=== PATIENT | female | born 1965 | race Caucasian/White ===

== ENCOUNTER → 2016-04-01 | Outpatient (CLI) | payer OTHER ==
[~2016-04-01] MED LIST: ASPCH81X PO; CALC600T9 PO; CHOL1000 PO; CLB/200 PO; DVN80 PO; LAMICTAL PO; LAMO150T32 PO; MIRT45TA PO; MULT-506 PO; NIAC750T2 PO; OMEG10007 PO; PSYL0.524 PO; THIO5CAP2 PO; VENL150C56 PO; ZNTT/150 PO
[2016-04-01 16:06] LABS: PROLACTIN 47.14 ng/mL
== END | disposition home or self-care (01) ==
LOC: C.LAB1850 14:46
PROVIDERS: ATTEND Obstetrics & Gynecology
DX: N91.2 Amenorrhea, unspecified (principal)

== ENCOUNTER → 2016-04-01 | Outpatient (CLI) | payer OTHER | END | disposition home or self-care (01) | LOC: C.PAPS 07:52 | PROVIDERS: ATTEND Obstetrics & Gynecology | DX: Z01.419 Encounter for gynecological examination (general) (routine) without abnormal findings (principal) ==

== ENCOUNTER → 2016-08-06 | Outpatient (CLI) | payer OTHER ==
[2016-08-06 12:16] LABS: BASO % 0.2 %; BASO ABS # 0.01 K/uL (0-0.2); COMPLETE YES; EOS % 1.5 %; HEMATOCRIT 43.3 % (37-47); IG% 0.2 %; LYMPH % 30.5 %; LYMPH ABS # 1.68 K/uL (1.2-3.4); MEAN CELL VOLUME 99.1 fL (80-100); MEAN CORPUSCULAR HEMOGLOBIN 33.9 pg (25-34); MEAN CORPUSCULAR HGB CONC 34.2 g/dl (32-36); MEAN PLATELET VOLUME 9.9 fL (7.4-10.4); MONO % 6.4 %; NEUT % 61.2 %; PLATELET COUNT 215 K/uL (130-400); RED BLOOD COUNT 4.37 M/uL (4.2-5.4); WHITE BLOOD COUNT 5.51 K/uL (4.8-10.8)
[2016-08-06 12:26] LABS: ESTIMATED AVERAGE GLUCOSE 108 mg/dl; HA1C FLAG Normal (Normal)
[2016-08-06 12:27] LABS: ALB/GLOB RATIO 1.2 (0.9-2); ALT/SGPT 33 U/L (12-78); AST/SGOT 12 U/L (15-37); BLOOD UREA NITROGEN 19 mg/dl (7-18); BUN/CREATININE RATIO 18.6 (10-20); CALCIUM 9.5 mg/dl (8.5-10.1); CARBON DIOXIDE 28 mmol/L (21-32); CHLORIDE 106 mmol/L (98-107); CHOLESTEROL 213 mg/dl (0-200); CHOLESTEROL/HDL RATIO 3.3; GLUCOSE 134 mg/dl (70-99); HDL CHOLESTEROL 64 mg/dl; POTASSIUM 4.1 mmol/L (3.5-5.1); SODIUM 141 mmol/L (136-145)
[2016-08-06 12:34] LABS: ALKALINE PHOSPHATASE 56 U/L (45-117); LDL CHOLESTEROL CALCULATED 115 mg/dl; TRIGLYCERIDES 168 mg/dl (0-150); VERY LOW DENSITY LIPOPROT CALC 34 mg/dl
[2016-08-06 13:04] LABS: URINE APPEARANCE CLEAR (CLEAR); URINE BILIRUBIN NEG (NEG); URINE COLOR YELLOW; URINE EPITHELIAL CELL AUTO >30 /lpf (0-5); URINE NITRITE NEG (NEG); URINE PH 6.5 (4.5-7.5); URINE SPECIFIC GRAVITY 1.016 (1.000-1.030); UROBILINOGEN NEG (NEG); ZZUR CULT IF INDIC CLEAN CATCH NO
[2016-08-06 13:16] LABS: MANUAL MICROSCOPIC REQUIRED? NO; REVIEW REQ? NO
== END | disposition home or self-care (01) ==
LOC: C.LABBFT 08:36
PROVIDERS: ATTEND Internal Medicine
DX: R31.29 Other microscopic hematuria (principal); R73.01 Impaired fasting glucose; F25.9 Schizoaffective disorder, unspecified; E78.5 Hyperlipidemia, unspecified

== ENCOUNTER → 2016-08-21 | Outpatient (CLI) | payer OTHER | END | disposition home or self-care (01) | LOC: C.LABBFT 10:39 | PROVIDERS: ATTEND Psychiatry & Neurology Psychiatry | DX: F25.1 Schizoaffective disorder, depressive type (principal) ==

== ENCOUNTER → 2016-10-04 | Day surgery (SDC) | payer OTHER ==
[2016-09-27 12:40] VITALS: Ht 167.6 cm; Wt 52.5 kg
[~2016-10-04] VITALS: Ht 167.6 cm; Wt 52.5 kg
[~2016-10-04] MED LIST changes: -LAMICTAL PO; +PROPOFOL IV EMULSION 10 MG/ML 20 ML VIAL IV ONE
[2016-10-04 08:36] VITALS: TEMP 36.7
--- NOTE | 2016-10-04 08:55 | Endo History and Physical ---
History & Physical Date of Service: Oct 04, 2016. Chief Complaint: Screening Referring Physician: Norma History of Present Illness 50 yo CF who presents for screening colonoscopy. Past Surgical History Hx Cardiac Surgery: No Hx Internal Defibrillator: No Hx Pacemaker: No Hx Abdominal Surgery: Yes (EXPLORATORY LAP-OOPHERECTOMY) Hx of Implantable Prosthesis: No Hx Post-Op Nausea and Vomiting: No Hx Cancer Surgery: No Hx Thoracic Surgery: Yes (THORACOTOMY-STREP PNEUMONIA) Hx Orthopedic: Yes (L KNEE KNEE, R KNEE SCOPE) Hx Urinary Tract Surgery: No Family History Colon CA, IBD Social History Smoking Status: Never Smoker Hx Substance Use: No Hx Alcohol Use: Yes (OCCASIONAL) Allergies Coded Allergies: Erythromycin (Verified Allergy, Unknown, RASH, 10/04/16) Gabapentin (Verified Allergy, Unknown, RASH, 10/04/16) Metoclopramide (Verified Allergy, Unknown, RASH, 10/04/16) Prochlorperazine (Verified Allergy, Unknown, LOW WBC'S, 10/04/16) Sulfa Drugs (Verified Allergy, Unknown, RASH, 10/04/16) Trimethobenzamide (Unverified Allergy, Unknown, DROPS WBC'S, 10/04/16) Current Medications Reported Home Medications Medications Dose Route/Sig Max Daily Dose Days Date Category Dose Instructions Lamictal (Lamotrigine) 150 Mg Tab 300 Mg PO HS 09/27/16 Reported Metamucil (Psyllium) 0.52 Gm Cap 1 Dose PO BID 09/27/16 Reported [place]-3 (Fish Oil) 1 Ea Cap 1 Cap PO BID 09/27/16 Reported Diovan (Valsartan) 80 Mg Tab 80 Mg PO QAM 09/27/16 Reported Vitamin D3 (Cholecalciferol) 1,000 Unit Tab 1 Tab PO QAM 90 09/27/16 Reported Calcium + D (Calcium Carbonate-Vitamin D) 1 Tab Tab 1 Tab PO QAM 09/27/16 Reported Aspirin Chewable (Aspirin) 81 Mg Chew 162 Cap PO HS 09/05/15 Reported TAKES FOR NIASPAN FLUSH Multivitamin (Multivitamins) Tab 1 Tab PO QAM 09/05/15 Reported Niaspan Ext Rel (Niacin) 750 Mg Tabcr 2 Tab PO HS 09/05/15 Reported Remeron (Mirtazapine) 45 Mg Tab 1 Tab PO HS 30 09/05/15 Reported Navane (Thiothixene) 5 Mg Cap 25 Cap PO HS 09/05/15 Reported Zantac (Ranitidine HCl) 150 Mg Tab 150 Mg PO BID 09/05/15 Reported CeleBREX (Celecoxib) 200 Mg Cap 200 Mg PO QAM 09/05/15 Reported Effexor Extended Rel (Venlafaxine Hcl) 150 Mg Cap 2 Cap PO QAM 09/05/15 Reported Vital Signs Weight (Kilograms): 52.5 Height (Feet): 5 Height (Inches): 6 Date Time Temp Pulse Resp B/P (MAP) Pulse Ox O2 Delivery O2 Flow Rate FiO2 10/04/16 08:36 36.7 75 18 131/82 (98) 97 Room Air Physical Exam General Appearance: WD/WN, no apparent distress Respiratory/Chest: Auscultation: breath sounds normal Cardiovascular: Heart Auscultation: RRR Abdomen: Bowel Sounds: normal Inspection & Palpation: soft, non-distended, no tenderness, guarding & rebound Assessment and Plan Assessment: 50 yo CF who presents for screening colonoscopy. Plan: Proceed with colonoscopy.
--- NOTE | 2016-10-04 09:33 | Discharge Instructions ---
Endoscopy Patient Instructions Date / Procedure(s) Performed Oct 04, 2016. Colonoscopy Allergy Information Coded Allergies: Erythromycin (Verified Allergy, Unknown, RASH, 10/04/16) Gabapentin (Verified Allergy, Unknown, RASH, 10/04/16) Metoclopramide (Verified Allergy, Unknown, RASH, 10/04/16) Prochlorperazine (Verified Allergy, Unknown, LOW WBC'S, 10/04/16) Sulfa Drugs (Verified Allergy, Unknown, RASH, 10/04/16) Trimethobenzamide (Unverified Allergy, Unknown, DROPS WBC'S, 10/04/16) Discharge Date / Findings Oct 04, 2016. Colon polyp Diverticulosis Internal hemorrhoids Medication Instructions Stopped Medication(s): Aspirin stopped 09/27/16 Celebrex stopped 09/27/16 OK to resume all medications today as prescribed Reported Home Medications Medications Dose Route/Sig Max Daily Dose Days Date Category Dose Instructions Lamictal (Lamotrigine) 150 Mg Tab 300 Mg PO HS 09/27/16 Reported Metamucil (Psyllium) 0.52 Gm Cap 1 Dose PO BID 09/27/16 Reported [place]-3 (Fish Oil) 1 Ea Cap 1 Cap PO BID 09/27/16 Reported Diovan (Valsartan) 80 Mg Tab 80 Mg PO QAM 09/27/16 Reported Vitamin D3 (Cholecalciferol) 1,000 Unit Tab 1 Tab PO QAM 90 09/27/16 Reported Calcium + D (Calcium Carbonate-Vitamin D) 1 Tab Tab 1 Tab PO QAM 09/27/16 Reported Aspirin Chewable (Aspirin) 81 Mg Chew 162 Cap PO HS 09/05/15 Reported TAKES FOR NIASPAN FLUSH Multivitamin (Multivitamins) Tab 1 Tab PO QAM 09/05/15 Reported Niaspan Ext Rel (Niacin) 750 Mg Tabcr 2 Tab PO HS 09/05/15 Reported Remeron (Mirtazapine) 45 Mg Tab 1 Tab PO HS 30 09/05/15 Reported Navane (Thiothixene) 5 Mg Cap 25 Cap PO HS 09/05/15 Reported Zantac (Ranitidine HCl) 150 Mg Tab 150 Mg PO BID 09/05/15 Reported CeleBREX (Celecoxib) 200 Mg Cap 200 Mg PO QAM 09/05/15 Reported Effexor Extended Rel (Venlafaxine Hcl) 150 Mg Cap 2 Cap PO QAM 09/05/15 Reported Provider Instructions Activity Restrictions - No exercising or heavy lifting for 24 hours. - Do not drink alcohol the day of the procedure. - Do not drive a car or operate machinery until the day after the procedure. - Do not make any important decisions or sign important papers in 24 hours after the procedure. Following Day: - Return to full activity which may include returning to work/school. Diet Start your diet with liquids and light foods (jello, soup, juice, toast). Then eat your usual diet if not nauseated. Treatment For Common After Affects For mild abdominal pain, bloating, or excessive gas: - Rest - Eat lightly - Lie on right side Follow-Up Information Follow-up with [facility] as scheduled Anesthesia Information What You Should Know You have had a procedure that required some medicine to reduce anxiety and discomfort. This treatment is called moderate sedation. After receiving the treatment, you may be sleepy, but you will be able to breathe on your own. The effects of the treatment may last for several hours. Follow these instructions along with Activity/Diet recommendations noted above: * Do NOT do anything where dizziness or clumsiness would be dangerous. * Rest quietly at home today, then you can be up and about tomorrow. * Have a responsible person stay with you the rest of today. * You may have had an I.V. today. If so, you may take the dressing off later today. Recommendations Call your doctor if: * Trouble breathing * Continuous vomiting for more than 24 hours * Temperature above 101 degrees * Severe abdominal pain or bloating * Pain not relieved by pain medicine ordered * There is increased drainage or redness from any incision * A large amount of rectal bleeding greater than 2-3 tablespoons. (If you had a polyp/s removed or have hemorrhoids, a small amount of blood - from the rectum is to be expected.) * You have any unanswered questions or concerns. IN THE EVENT OF A SERIOUS EMERGENCY, GO TO THE NEAREST EMERGENCY ROOM Your discharge instructions were prepared by provider Frankie Gaona. Patient Instructions Signature Page Marla Sumner Patient (or Guardian) Signature/Date: I have read and understand the instructions given to me by my caregivers. Caregiver/RN/Doctor Signature/Date: The above-named patient and/or guardian has received patient instructions on this date. + Original Patient Signature Page (only) stays with chart. Please make copy for patient.
[2016-10-04 09:57] VITALS: BP 140/81; PULSE 70; O2SAT 98
--- NOTE | 2016-10-04 10:07 | Anesthesiology Progress Note ---
Anesthesia Post Op Note Date & Time Oct 04, 2016 at 10:07 Vital Signs Pain Intensity: 0 Vital Signs Past 12 Hours Date Time Temp Pulse Resp B/P (MAP) Pulse Ox O2 Delivery O2 Flow Rate FiO2 10/04/16 09:57 70 20 140/81 (100) 98 Room Air 10/04/16 09:41 71 20 146/91 (109) 99 Room Air 10/04/16 09:26 73 16 123/68 (86) 98 Room Air 10/04/16 08:36 36.7 75 18 131/82 (98) 97 Room Air Notes Mental Status: alert / awake / arousable, participated in evaluation Pt Amnestic to Procedure: Yes Nausea / Vomiting: adequately controlled Pain: adequately controlled Airway Patency, RR, SpO2: stable & adequate BP & HR: stable & adequate Hydration State: stable & adequate Anesthetic Complications: no major complications apparent
--- NOTE | 2016-10-04 10:42 | GI REPORT ---
Procedure Date: 10/04/2016 8:35 AM Procedure: Colonoscopy Indications: Screening for colorectal malignant neoplasm Medicines: Monitored Anesthesia Care Complications: No immediate complications. Estimated Blood Loss: Estimated blood loss: none. Procedure: Pre-Anesthesia Assessment: - Prior to the procedure, a History and Physical was performed, and patient medications and allergies were reviewed. The patient's tolerance of previous anesthesia was also reviewed. The risks and benefits of the procedure and the sedation options and risks were discussed with the patient. All questions were answered, and informed consent was obtained. Prior Anticoagulants: The patient has taken aspirin, last dose was 7 days prior to procedure. ASA Grade Assessment: II - A patient with mild systemic disease. After reviewing the risks and benefits, the patient was deemed in satisfactory condition to undergo the procedure. After I obtained informed consent, the scope was passed under direct vision. Throughout the procedure, the patient's blood pressure, pulse, and oxygen saturations were monitored continuously. The scope was introduced through the anus and advanced to the cecum, identified by appendiceal orifice and ileocecal valve. The colonoscopy was performed without difficulty. The patient tolerated the procedure well. The quality of the bowel preparation was good. The terminal ileum, ileocecal valve, appendiceal orifice, and rectum were photographed. Findings: A 7 mm polyp was found in the sigmoid colon. The polyp was semi-pedunculated. The polyp was removed with a hot snare. Resection and retrieval were complete. Multiple small-mouthed diverticula were found in the sigmoid colon. Non-bleeding internal hemorrhoids were found during retroflexion. The hemorrhoids were small. Impression: - One 7 mm polyp in the sigmoid colon, removed with a hot snare. Resected and retrieved. - Diverticulosis in the sigmoid colon. - Non-bleeding internal hemorrhoids. Recommendation: - Resume previous diet. - Continue present medications. - Repeat colonoscopy for surveillance based on pathology results. - Return to primary care physician as previously scheduled. Frankie Gaona, DO 10/04/2016 9:29:13 AM This report has been signed electronically. Note Initiated On: 10/04/2016 8:35 AM I attest to the content of the Intraoperative Record and orders documented therein, exceptions below
== END | disposition home or self-care (01) ==
LOC: C.GI 08:01
PROVIDERS: ATTEND Internal Medicine
DX: Z12.11 Encounter for screening for malignant neoplasm of colon (principal); D12.5 Benign neoplasm of sigmoid colon; K57.30 Diverticulosis of large intestine without perforation or abscess without bleeding; K64.8 Other hemorrhoids; Z80.0 Family history of malignant neoplasm of digestive organs; Z83.79 Family history of other diseases of the digestive system; Z79.82 Long term (current) use of aspirin; Z79.899 Other long term (current) drug therapy

== ENCOUNTER → 2017-04-01 | Outpatient (CLI) | payer OTHER ==
[~2017-04-01] MED LIST changes: +LAMO150T PO; -LAMO150T32 PO; -PROPOFOL IV EMULSION 10 MG/ML 20 ML VIAL IV ONE
--- NOTE | 2017-04-02 14:57 | MAMMOGRAPHY REPORT ---
BILATERAL DIGITAL SCREENING MAMMOGRAM TOMOSYNTHESIS WITH CAD: 04/01/2017 CLINICAL HISTORY: Routine screening. TECHNIQUE: Breast tomosynthesis in addition to standard 2D mammography was performed. Current study was also evaluated with a Computer Aided Detection (CAD) system. COMPARISON: Comparison is made to exams dated: 12/12/2015 mammogram, 09/21/2014 mammogram, 08/27/2013 m ammogram, 07/28/2012 mammogram, 06/05/2011 mammogram - [facility], and 12/14/2007. BREAST COMPOSITION: There are scattered areas of fibroglandular density in both breasts. FINDINGS: A linear scar marker overlies the periareolar left breast. There is a stable ribbon-shaped biopsy marker clip in the 6:00 anterior right breast. Scattered benign-appearing round and punctate macro calcifications. No suspicious mass, architectural distortion or cluster of suspicious microca lcifications is seen. IMPRESSION: ACR BI-RADS CATEGORY 1: NEGATIVE There is no mammographic evidence of malignancy. A 1 year screening mammogram is recommended. The pa tient will receive written notification of the results. Approximately 10% of breast cancers are not detected with mammography. A negative mammographic report should not delay biopsy if a clinically suggestive mass is present. Shanita Pierson M.D. ay/:04/01/2017 15:21:10 Abstract Searcher: Aranza EDWARDS)(M), [facility] letter sent: Normal 1/2 BI-RADS Code: ACR BI-RADS Category 1: Negative
== END | disposition home or self-care (01) ==
LOC: C.MAMM 13:50
PROVIDERS: ATTEND Obstetrics & Gynecology
DX: Z12.31 Encounter for screening mammogram for malignant neoplasm of breast (principal)

== ENCOUNTER → 2017-04-09 | Outpatient (CLI) | payer OTHER | END | disposition home or self-care (01) | LOC: C.PAPS 09:00 | PROVIDERS: ATTEND Obstetrics & Gynecology | DX: Z12.4 Encounter for screening for malignant neoplasm of cervix (principal); R87.610 Atypical squamous cells of undetermined significance on cytologic smear of cervix (ASC-US); Z78.0 Asymptomatic menopausal state ==

== ENCOUNTER → 2017-06-03 | Outpatient (CLI) | payer OTHER ==
[~2017-06-03] MED LIST changes: +RANI150T85 PO; -ZNTT/150 PO
[2017-06-03 12:49] LABS: HEMOGLOBIN A1C 5.6 % (4.5-5.6)
[2017-06-03 13:17] LABS: ALBUMIN 3.9 gm/dl (3.4-5.0); ALT/SGPT 36 U/L (12-78); AST/SGOT 18 U/L (15-37); BLOOD UREA NITROGEN 14 mg/dl (7-18); CALCIUM 9.4 mg/dl (8.5-10.1); CARBON DIOXIDE 24 mmol/L (21-32); CHOLESTEROL 212 mg/dl (0-200); CREATININE 1.08 mg/dl (0.60-1.20); GLUCOSE 135 mg/dl (70-99); POTASSIUM 4.4 mmol/L (3.5-5.1); SODIUM 140 mmol/L (136-145)
[2017-06-03 13:22] LABS: ALKALINE PHOSPHATASE 55 U/L (45-117); LDL CHOLESTEROL CALCULATED 117 mg/dl; TOTAL PROTEIN 7.2 gm/dl (6.4-8.2)
== END | disposition home or self-care (01) ==
LOC: C.LABBFT 10:04
PROVIDERS: ATTEND Nurse Practitioner
DX: R73.01 Impaired fasting glucose (principal)

== ENCOUNTER → 2017-10-16 | Outpatient (CLI) | payer OTHER ==
[2017-10-16 13:42] LABS: ALBUMIN 4.1 gm/dl (3.4-5.0); TOTAL PROTEIN 7.3 gm/dl (6.4-8.2)
== END | disposition home or self-care (01) ==
LOC: C.LABBFT 09:12
PROVIDERS: ATTEND Internal Medicine
DX: E78.5 Hyperlipidemia, unspecified (principal); E55.9 Vitamin D deficiency, unspecified; F25.1 Schizoaffective disorder, depressive type

== ENCOUNTER 2021-09-07 11:03 | Inpatient (IN) ==
--- NOTE | 2021-09-07 11:32 | Emergency Department Note ---
Impression & Plan Schizoaffective disorder, Depression with suicidal ideation ED Provider Note Provider: Romain Hurley MD DATE OF SERVICE: 09/07/2021 CHIEF COMPLAINT: Depression with suicidal thoughts HISTORY OF PRESENT ILLNESS: Patient is a 55-year-old female history of schizoaffective disorder as well as hypertension, diabetes, and CKD presenting here today with her . States over the past 3 months has had a decline of her mental health. States even more depressed since her dog in has been trying to work with her outpatient counselors as well as using a light box without improvement. States she has been taking her psychiatric medications. Patient states of the last 2 weeks she did not have thoughts of wanting to kill her self. Patient states she is now having thoughts of wanting to possibly hang herself but has not tried to harm her self. Patient has a history of suicide in the past. Reports a history of schizoaffective and hallucinations in the past. States hallucinations are somewhat increased both with visual hallucinations as well as auditory hallucinations saying her name but not making commanding thoughts. Patient states she really wishes to stay here if at all possible for psychiatric care but believes she needs inpatient care again as its been 4 years since her last inpatient stay and she is having worsened symptoms. REVIEW OF SYSTEMS: A total of 10 review of systems was obtained and negative except as stated above in the HPI. PAST MEDICAL HISTORY: As noted above MEDICATIONS: Reviewed home medication list SOCIAL HISTORY: Lives at home with , unemployed PHYSICAL EXAM: GENERAL: alert and oriented in no acute distress on stretcher Head: normocephalic and atraumatic EYES: No injection, discharge or icterus. NECK: Trachea midline. ENT: Mucous membranes pink and moist. LUNGS: Airway patent. No retractions. Breath sounds clear with good air entry bilaterally. HEART: Regular rate and rhythm. No chest wall tenderness ABDOMEN: Soft and non-tender, without guarding or rebound. SKIN: Acyanotic, warm, dry, without rashes EXTREMITIES: Without swelling, tenderness or deformity NEUROLOGICAL: No focal deficits. No aphasia. No facial droop or slurred speech. Ambulatory. Psych: Flattened affect. Not responding to external stimuli but endorses hallucinations. Denies anxiety. She denies any HI. She reports SI with possible plan to hang herself. Patient's laboratory studies reviewed. Differential includes Mood disorder, infection, hypoglycemia, electrolyte abnormalities, cardiac sources, intracerebral event, toxicologic, trauma, n eurologic, as well as other pathologies. IMPRESSION/MEDICAL DECISION MAKING: Seen with business case analyst. Patient with an underlying psychiatric history states compliance with home medications. Basic labs and levels were sent. No significant concerning abnormalities are noted. Urinalysis appears contaminated and in discussion with the patient she denies complaints. Will defer treatment at this time as she is asymptomatic. She is scheduled for an outpatient sleep study but does not currently have a CPAP. She patient denies significant physical complaints and denies attempting to harm her self at this point. Does give concerning story of planning possibly to hang herself. Referrals are made for inpatient care on a voluntary basis. Patient excepted 3 S. for further inpatient care on 201. DIAGNOSIS: Depression with suicidal ideation, schizoaffective disorder DISPOSITION: Excepted to 3 S. for further inpatient care. Past Med/Surg History Medical History Anxiety DDD (degenerative disc disease) Depression (09/12/12) Diverticulosis DM type 2 (diabetes mellitus, type 2) Dyslipidemia History of vitamin D deficiency Hypertension Irritable bowel syndrome Lumbar herniated disc Lumbar radiculopathy PTSD (post-traumatic stress disorder) Schizoaffective disorder Spinal stenosis Surgical History H/O arthroscopy of knee H/O oophorectomy History of colonoscopy History of esophagogastroduodenoscopy (EGD) History of inguinal hernia repair History of laparoscopy History of left breast biopsy History of thoracotomy Family History Grandmother Osteoporosis Father Colon cancer Mother Coronary heart disease Hypertension PONV (postoperative nausea and vomiting) Brother Healthy adult Sister Osteoporosis History of diverticulitis Denies family history of Ovarian cancer Breast cancer Social History Smoking Status: Never smoker Second Hand Exposure: No; Hx Alcohol Use: Yes Alcohol type: wine Alcohol Intake Frequency: 2-4 x/Month Alcohol Intake Frequency Comment: Mixed drink approximately 1 time per week. 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) Feels Safe at Home: Yes caffeine: Yes Dental Care, Regularly: Yes Seatbelt Use: always Sunscreen Use: Yes Assistive Devices: None Allergies Allergies Allergy/AdvReac Type Severity Reaction Status Date / Time erythromycin base Allergy Unknown RASH Verified 09/07/21 10:05 gabapentin Allergy Unknown RASH Verified 09/07/21 10:05 metoclopramide Allergy Unknown RASH Verified 09/07/21 10:05 prochlorperazine Allergy Unknown LOW WBC'S Verified 09/07/21 10:05 Sulfa (Sulfonamide Allergy Unknown RASH Verified 09/07/21 10:05 Antibiotics) trimethobenzamide Allergy Unknown DROPS WBC'S Verified 09/07/21 10:05 atorvastatin AdvReac Muscle Pain Verified 09/07/21 10:05 pravastatin AdvReac Muscle Pain Verified 09/07/21 10:05 Home Meds Home Medications Medication Instructions Recorded Confirmed mirtazapine 45 mg tablet 45 mg PO HS tab 10/31/18 09/07/21 omega-3 fatty acids 1,000 mg 1,000 mg PO BID 10/31/18 09/07/21 capsule (Fish Oil Concentrate) lamotrigine 100 mg tablet 100 mg PO UD tab 06/20/20 09/07/21 aspirin 81 mg tablet,delayed 162 mg PO QPM tab 11/01/20 09/07/21 release thiothixene 10 mg capsule 30 mg PO DAILY cap 11/01/20 09/07/21 lithium carbonate 300 mg 600 mg PO HS tab 07/11/21 09/07/21 tablet,extended release cholecalciferol (vitamin D3) 25 3,000 unit PO QAM cap 09/04/21 09/07/21 mcg (1,000 unit) capsule magnesium 1 tab PO DAILY 09/04/21 09/07/21 amantadine HCl 100 mg capsule 100 mg PO BID 09/07/21 09/07/21 venlafaxine 150 mg 300 mg PO PM 09/07/21 09/07/21 capsule,extended release 24 hr Previous Rx's Medication Instructions Recorded celecoxib 200 mg capsule 200 mg PO QAM #90 cap 12/26/20 rosuvastatin 5 mg tablet 5 mg PO HS #90 tab 02/28/21 metformin 500 mg tablet,extended 500 mg PO BID #180 tab 05/29/21 release 24 hr blood-glucose meter (OneTouch #1 ea 07/11/21 Verio Reflect Start) levothyroxine 25 mcg tablet 25 mcg PO DAILY #90 tab 07/11/21 losartan 100 mg tablet 100 mg PO QAM #90 tab 08/30/21 Results & Data (ED) Vital Signs Vital Signs - 24 hr 09/07/21 11:08 Temperature 36.7 C Temperature Source Temporal Artery Scan Pulse Rate 95 H Respiratory Rate 20 Respiratory Effort / Characteristics Non-Labored Spontaneous Respiratory Depth Normal Respiratory Pattern Regular Blood Pressure 145/88 H Blood Pressure Mean 107 Pulse Oximetry 96 Oxygen Delivery Method Room Air Sepsis Recent Fever Within 48 Hours No Sepsis New/Unexplained Change in Mental Status No Sepsis Action Taken by Nursing No Action Required Laboratory Data Result diagrams: 09/07/21 11:38 09/07/21 11:38 Lab Results 09/07/21 09/07/21 09/07/21 Range/Units 11:38 11:38 11:38 WBC 8.49 (4.8-10.8) K/uL RBC 4.65 (4.2-5.4) M/uL Hgb 14.7 (12.0-16.0) g/dL Hct 44.0 (37-47) % MCV 94.6 (80-100) fL MCH 31.6 (25-34) pg MCHC 33.4 (32-36) g/dL RDW Std Deviation 45.2 (36.4-46.3) fL RDW Coeff of Aries 13.0 (11.5-14.5) % Plt Count 281 (130-400) K/uL MPV 9.9 (7.4-10.4) fL Immature Gran % (Auto) 0.6 % Neut % (Auto) 72.3 % Lymph % (Auto) 19.3 % [place] % (Auto) 6.5 % Eos % (Auto) 1.2 % Baso % (Auto) 0.1 % Neut # (Auto) 6.14 (1.4-6.5) K/uL Lymph # (Auto) 1.64 (1.2-3.4) K/uL [place] # (Auto) 0.55 (0.11-0.59) K/uL Eos # (Auto) 0.10 (0-0.5) K/uL Baso # (Auto) 0.01 (0-0.2) K/uL Immature Gran # (Auto) 0.05 H (0.00-0.02) K/uL Sodium 138 (136-145) mmol/L Potassium 3.8 (3.5-5.1) mmol/L Chloride 105 (98-107) mmol/L Carbon Dioxide 25 (21-32) mmol/L Anion Gap 8 (3-11) BUN 21 (6-23) mg/dl Creatinine 1.11 (0.6-1.2) mg/dl Est Cr Clr Drug Dosing 65.4 ml/min Est GFR ( Amer) 64.3 ml/min Est GFR (Non-Af Amer) 55.5 ml/min BUN/Creatinine Ratio 18.9 (10-20) Glucose 146 H (70-99(Fasting)) mg/dl Calcium 10.8 H (8.5-10.1) mg/dl Total Bilirubin 0.6 (0.2-1.0) mg/dl AST 14 (13-39) U/L ALT 26 (7-52) U/L Alkaline Phosphatase 66 (34-104) U/L Total Protein 8.1 (6.0-8.3) gm/dl Albumin 5.2 H (3.4-5.0) gm/dl Globulin 2.9 (2.5-4.0) gm/dl Albumin/Globulin Ratio 1.8 (0.9-2) TSH 3.298 (0.300-4.500) uIu/ml Urine Color Urine Appearance (Clear) Urine pH (4.5-7.5) Ur Specific [place] (1.000-1.030) Urine Protein (Negative) Urine Glucose (UA) (Negative) Urine Ketones (Negative) Urine Blood (Negative) Urine Nitrite (Negative) Urine Bilirubin (Negative) Urine Urobilinogen (Negative) Ur Leukocyte Esterase (Negative) Urine WBC (Auto) (0-5) /hpf Urine RBC (Auto) (0-4) /hpf U Hyaline Cast (Auto) (0-5) /lpf U Epithel Cells (Auto) (0-5) /lpf Urine Bacteria (Auto) (Negative) POC Ur Test (NEG) Salicylates (3.0-30) mg/dl Urine Opiates Screen (Neg) Ur Methadone, Qual (Neg) Acetaminophen (10-30) ug/ml Urine Barbiturates (Neg) Ur Phencyclidine (PCP) (Neg) U Amphetamin/Meth Scrn (Neg) MDMA (Ecstasy) Screen (Neg) U Benzodiazepines Scrn (Neg) [place] (0.6-1.2) mmol/L Ur Cocaine Metabolite (Neg) U Marijuana (THC) Screen (Neg) Ethyl Alcohol mg/dL (<10.0) mg/dl SARS-CoV-2, RNA, NAAT (NEGATIVE) 09/07/21 09/07/21 09/07/21 Range/Units 11:38 11:38 11:38 WBC (4.8-10.8) K/uL RBC (4.2-5.4) M/uL Hgb (12.0-16.0) g/dL Hct (37-47) % MCV (80-100) fL MCH (25-34) pg MCHC (32-36) g/dL RDW Std Deviation (36.4-46.3) fL RDW Coeff of Aries (11.5-14.5) % Plt Count (130-400) K/uL MPV (7.4-10.4) fL Immature Gran % (Auto) % Neut % (Auto) % Lymph % (Auto) % [place] % (Auto) % Eos % (Auto) % Baso % (Auto) % Neut # (Auto) (1.4-6.5) K/uL Lymph # (Auto) (1.2-3.4) K/uL [place] # (Auto) (0.11-0.59) K/uL Eos # (Auto) (0-0.5) K/uL Baso # (Auto) (0-0.2) K/uL Immature Gran # (Auto) (0.00-0.02) K/uL Sodium (136-145) mmol/L Potassium (3.5-5.1) mmol/L Chloride (98-107) mmol/L Carbon Dioxide (21-32) mmol/L Anion Gap (3-11) BUN (6-23) mg/dl Creatinine (0.6-1.2) mg/dl Est Cr Clr Drug Dosing ml/min Est GFR ( Amer) ml/min Est GFR (Non-Af Amer) ml/min BUN/Creatinine Ratio (10-20) Glucose (70-99(Fasting)) mg/dl Calcium (8.5-10.1) mg/dl Total Bilirubin (0.2-1.0) mg/dl AST (13-39) U/L ALT (7-52) U/L Alkaline Phosphatase (34-104) U/L Total Protein (6.0-8.3) gm/dl Albumin (3.4-5.0) gm/dl Globulin (2.5-4.0) gm/dl Albumin/Globulin Ratio (0.9-2) TSH (0.300-4.500) uIu/ml Urine Color Urine Appearance (Clear) Urine pH (4.5-7.5) Ur Specific [place] (1.000-1.030) Urine Protein (Negative) Urine Glucose (UA) (Negative) Urine Ketones (Negative) Urine Blood (Negative) Urine Nitrite (Negative) Urine Bilirubin (Negative) Urine Urobilinogen (Negative) Ur Leukocyte Esterase (Negative) Urine WBC (Auto) (0-5) /hpf Urine RBC (Auto) (0-4) /hpf U Hyaline Cast (Auto) (0-5) /lpf U Epithel Cells (Auto) (0-5) /lpf Urine Bacteria (Auto) (Negative) POC Ur Test (NEG) Salicylates < 3.0 L (3.0-30) mg/dl Urine Opiates Screen (Neg) Ur Methadone, Qual (Neg) Acetaminophen < 3 L (10-30) ug/ml Urine Barbiturates (Neg) Ur Phencyclidine (PCP) (Neg) U Amphetamin/Meth Scrn (Neg) MDMA (Ecstasy) Screen (Neg) U Benzodiazepines Scrn (Neg) [place] 0.6 (0.6-1.2) mmol/L Ur Cocaine Metabolite (Neg) U Marijuana (THC) Screen (Neg) Ethyl Alcohol mg/dL < 10.0 (<10.0) mg/dl SARS-CoV-2, RNA, NAAT NEGATIVE (NEGATIVE) 09/07/21 09/07/21 09/07/21 Range/Units 12:18 12:18 12:25 WBC (4.8-10.8) K/uL RBC (4.2-5.4) M/uL Hgb (12.0-16.0) g/dL Hct (37-47) % MCV (80-100) fL MCH (25-34) pg MCHC (32-36) g/dL RDW Std Deviation (36.4-46.3) fL RDW Coeff of Aries (11.5-14.5) % Plt Count (130-400) K/uL MPV (7.4-10.4) fL Immature Gran % (Auto) % Neut % (Auto) % Lymph % (Auto) % [place] % (Auto) % Eos % (Auto) % Baso % (Auto) % Neut # (Auto) (1.4-6.5) K/uL Lymph # (Auto) (1.2-3.4) K/uL [place] # (Auto) (0.11-0.59) K/uL Eos # (Auto) (0-0.5) K/uL Baso # (Auto) (0-0.2) K/uL Immature Gran # (Auto) (0.00-0.02) K/uL Sodium (136-145) mmol/L Potassium (3.5-5.1) mmol/L Chloride (98-107) mmol/L Carbon Dioxide (21-32) mmol/L Anion Gap (3-11) BUN (6-23) mg/dl Creatinine (0.6-1.2) mg/dl Est Cr Clr Drug Dosing ml/min Est GFR ( Amer) ml/min Est GFR (Non-Af Amer) ml/min BUN/Creatinine Ratio (10-20) Glucose (70-99(Fasting)) mg/dl Calcium (8.5-10.1) mg/dl Total Bilirubin (0.2-1.0) mg/dl AST (13-39) U/L ALT (7-52) U/L Alkaline Phosphatase (34-104) U/L Total Protein (6.0-8.3) gm/dl Albumin (3.4-5.0) gm/dl Globulin (2.5-4.0) gm/dl Albumin/Globulin Ratio (0.9-2) TSH (0.300-4.500) uIu/ml Urine Color Yellow Urine Appearance Clear (Clear) Urine pH 6.0 (4.5-7.5) Ur Specific [place] 1.018 (1.000-1.030) Urine Protein Negative (Negative) Urine Glucose (UA) Negative (Negative) Urine Ketones Negative (Negative) Urine Blood Trace H (Negative) Urine Nitrite Negative (Negative) Urine Bilirubin Negative (Negative) Urine Urobilinogen Negative (Negative) Ur Leukocyte Esterase 2+ H (Negative) Urine WBC (Auto) 5-10 H (0-5) /hpf Urine RBC (Auto) 0-4 (0-4) /hpf U Hyaline Cast (Auto) 1-5 (0-5) /lpf U Epithel Cells (Auto) >30 H (0-5) /lpf Urine Bacteria (Auto) Negative (Negative) POC Ur Test NEG (NEG) Salicylates (3.0-30) mg/dl Urine Opiates Screen Neg (Neg) Ur Methadone, Qual Neg (Neg) Acetaminophen (10-30) ug/ml Urine Barbiturates Neg (Neg) Ur Phencyclidine (PCP) Neg (Neg) U Amphetamin/Meth Scrn Neg (Neg) MDMA (Ecstasy) Screen Neg (Neg) U Benzodiazepines Scrn Neg (Neg) [place] (0.6-1.2) mmol/L Ur Cocaine Metabolite Neg (Neg) U Marijuana (THC) Screen Neg (Neg) Ethyl Alcohol mg/dL (<10.0) mg/dl SARS-CoV-2, RNA, NAAT (NEGATIVE) Discharge Plan Visit Data Chief Complaint: Mental Health Evaluation Stated Complaint: MENTAL HEALTH EVALUATION ED Provider: Romain Hurley Discharge Problem: Schizoaffective disorder, Depression with suicidal ideation Patient Disposition: Admitted As Inpatient Forms Stand Alone Forms: [facility], Suicide Prevention Resources Prescriptions Prescriptions: No Action celecoxib 200 mg capsule 200 mg PO QAM Qty: 90 RF: 3 rosuvastatin 5 mg tablet 5 mg PO HS Qty: 90 RF: 3 metformin 500 mg tablet extended release 24 hr 500 mg PO BID Qty: 180 RF: 3 losartan 100 mg tablet 100 mg PO QAM Qty: 90 RF: 3 omega-3 fatty acids [Fish Oil Concentrate] 1,000 mg capsule 1,000 mg PO BID RF: 0 mirtazapine 45 mg tablet 45 mg PO HS RF: 0 aspirin 81 mg tablet,delayed release (DR/EC) 162 mg PO QPM RF: 0 cholecalciferol (vitamin D3) 25 mcg (1,000 unit) capsule 3,000 unit PO QAM RF: 0 magnesium 1 tab PO DAILY RF: 0 lamotrigine 100 mg tablet 100 mg PO UD RF: 0 thiothixene 10 mg capsule 30 mg PO DAILY RF: 0 lithium carbonate 300 mg tablet extended release 600 mg PO HS RF: 0 levothyroxine 25 mcg tablet 25 mcg PO DAILY Qty: 90 RF: 3 (DME) blood-glucose meter [[employer] Verio Reflect Start] Kit See Rx Instructions .Route Qty: 1 RF: 0 amantadine HCl 100 mg capsule 100 mg PO BID RF: 0 venlafaxine 150 mg capsule,extended release 24hr 300 mg PO PM RF: 0 Referrals Referrals: Ezra Green MD [Primary Care Provider] -
[2021-09-07 12:03] LABS: Basophils # (auto) 0.01 K/uL (0-0.2); Basophils % (auto) 0.1 %; Eosinophils % (auto) 1.2 %; Hemoglobin 14.7 g/dL (12.0-16.0); Immature Granulocytes # (auto) 0.05 K/uL (0.00-0.02); Immature Granulocytes % (auto) 0.6 %; Lymphocytes # (auto) 1.64 K/uL (1.2-3.4); Lymphocytes % (auto) 19.3 %; Mean Corpuscular Hemoglobin 31.6 pg (25-34); Mean Corpuscular Hgb Conc 33.4 g/dL (32-36); Mean Corpuscular Volume 94.6 fL (80-100); Mean Platelet Volume 9.9 fL (7.4-10.4); Monocytes # (auto) 0.55 K/uL (0.11-0.59); Monocytes % (auto) 6.5 %; Neutrophils # (auto) 6.14 K/uL (1.4-6.5); Neutrophils % (auto) 72.3 %; Platelet Count 281 K/uL (130-400); RDW Standard Deviation 45.2 fL (36.4-46.3); Red Blood Count 4.65 M/uL (4.2-5.4); White Blood Count 8.49 K/uL (4.8-10.8)
[2021-09-07 12:21] LABS: Acetaminophen < 3 ug/ml (10-30); Lithium 0.6 mmol/L (0.6-1.2); Salicylate < 3.0 mg/dl (3.0-30)
[2021-09-07 12:23] LABS: Albumin Globulin Ratio 1.8 (0.9-2); Albumin Level 5.2 gm/dl (3.4-5.0); BUN Creatinine Ratio 18.9 (10-20); Bilirubin,Total 0.6 mg/dl (0.2-1.0); Calcium 10.8 mg/dl (8.5-10.1); Creatinine Clr Calc Pharmacy 65.4 ml/min; Est GFR (African American) 64.3 ml/min; Est GFR (Non-African American) 55.5 ml/min; Globulin 2.9 gm/dl (2.5-4.0); Potassium 3.8 mmol/L (3.5-5.1); Total Protein 8.1 gm/dl (6.0-8.3)
[2021-09-07 12:40] LABS: Appearance Urine Clear (Clear); Bacteria Urine Automated Negative (Negative); Bilirubin Urine Negative (Negative); Blood Urine Trace (Negative); Color Urine Yellow; Epithelial Cell Urine Auto >30 /lpf (0-5); Glucose Urine UA Negative (Negative); Ketones Urine Negative (Negative); Leukocyte Esterase Urine 2+ (Negative); Nitrite Urine Negative (Negative); Protein Urine Negative (Negative); RBC Urine Automated 0-4 /hpf (0-4); Specific Gravity Urine 1.018 (1.000-1.030); Urobilinogen Urine Negative (Negative)
[2021-09-07 13:47] LABS: Amphetamines+Metham, Urine Neg (Neg); Barbiturates, Urine Neg (Neg); Benzodiazepine, Urine Neg (Neg); Cocaine, Urine Neg (Neg); MDMA (Ecstacy), Urine Neg (Neg); Methadone, Urine Neg (Neg); Opiate, Urine Neg (Neg); Phencyclidine, Urine Neg (Neg)
[2021-09-07] MEDS ORDERED: SODIUM CHLORIDE 0.65% NA SOLN 45 ML (OCEAN) PRN (14:55)
[2021-09-07] MEDS ORDERED: BISMUTH SUBSALICYLATE LIQD 236 ML PO PRN (14:55)
[2021-09-07] MEDS ORDERED: MAGNESIUM HYDROXIDE SUSP 30 ML UDC PO PRN (14:55)
[2021-09-07] MEDS ORDERED: ACETAMINOPHEN 325 MG TAB PO PRN (14:55)
[2021-09-07] MEDS ORDERED: ALUMINUM/MAGNESIUM SUSP 30 ML UDC PO PRN (14:55)
[2021-09-07] MEDS: VENLAFAXINE HCL XR 150 MG CAPXR PO SCH (20:45)
[2021-09-07] MEDS: lamoTRIgine 100 MG TAB PO SCH (20:45)
[2021-09-07] MEDS: metFORMIN HCL ER 500 MG TABCR PO SCH (20:45)
[2021-09-07] MEDS: ROSUVASTATIN CALCIUM 5 MG TAB PO SCH (20:45)
[2021-09-07] MEDS: LITHIUM CARBONATE SLOW REL 300 MG TAB PO SCH (20:45)
[2021-09-07] MEDS: AMANTADINE HCL 100 MG CAPSULE PO SCH (20:45)
[2021-09-07] MEDS: MIRTAZAPINE SOLTAB 15 MG PO SCH (20:45)
[2021-09-07] MEDS: ASPIRIN 81 MG ECTAB PO SCH (20:46)
[2021-09-07] MEDS: OMEGA-3 (PURIFIED FISH OIL) 1 GM CAP PO SCH (20:46)
[2021-09-08] MEDS: LEVOTHYROXINE SODIUM 25 MCG TABLET PO SCH (08:52)
[2021-09-08] MEDS ORDERED: THIOTHIXENE 5 MG CAP PO SCH (09:00)
[2021-09-08] MEDS: OMEGA-3 (PURIFIED FISH OIL) 1 GM CAP PO SCH ×2 (09:24→20:48)
[2021-09-08] MEDS: AMANTADINE HCL 100 MG CAPSULE PO SCH ×2 (09:24→20:40)
[2021-09-08] MEDS: CHOLECALCIFEROL 1,000 UNITS 25 MCG TAB PO SCH (09:24)
[2021-09-08] MEDS: CeleBREX 200 MG CAP PO SCH (09:24)
[2021-09-08] MEDS: metFORMIN HCL ER 500 MG TABCR PO SCH ×2 (09:25→17:30)
[2021-09-08] MEDS: lamoTRIgine 25 MG TAB PO SCH (09:25)
[2021-09-08] MEDS: LOSARTAN POTASSIUM 50 MG TAB PO SCH (09:25)
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
[2021-09-08] MEDS: lamoTRIgine 100 MG TAB PO SCH (20:38)
[2021-09-08] MEDS: LITHIUM CARBONATE SLOW REL 300 MG TAB PO SCH (20:39)
[2021-09-08] MEDS: THIOTHIXENE 5 MG CAP PO SCH (20:39)
[2021-09-08] MEDS: VENLAFAXINE HCL XR 150 MG CAPXR PO SCH (20:40)
[2021-09-08] MEDS: MIRTAZAPINE SOLTAB 15 MG PO SCH (20:40)
[2021-09-08] MEDS: ASPIRIN 81 MG ECTAB PO SCH (20:40)
[2021-09-08] MEDS: ROSUVASTATIN CALCIUM 5 MG TAB PO SCH (20:40)
[2021-09-09] MEDS: LEVOTHYROXINE SODIUM 25 MCG TABLET PO SCH (08:04)
[2021-09-09] MEDS: AMANTADINE HCL 100 MG CAPSULE PO SCH ×2 (08:53→20:41)
[2021-09-09] MEDS: CeleBREX 200 MG CAP PO SCH (08:53)
[2021-09-09] MEDS: lamoTRIgine 25 MG TAB PO SCH (08:54)
[2021-09-09] MEDS: OMEGA-3 (PURIFIED FISH OIL) 1 GM CAP PO SCH ×2 (08:54→20:42)
[2021-09-09] MEDS: CHOLECALCIFEROL 1,000 UNITS 25 MCG TAB PO SCH (08:54)
[2021-09-09] MEDS: metFORMIN HCL ER 500 MG TABCR PO SCH ×2 (08:55→17:44)
[2021-09-09] MEDS: LOSARTAN POTASSIUM 50 MG TAB PO SCH (08:55)
[2021-09-09] MEDS: hydrOXYzine HCl 25 MG TAB PO PRN ×3 (09:12→21:45)
--- NOTE | 2021-09-09 10:53 | Psychiatric Progress Note ---
Date of Service September 09, 2021 Impression / Recommendations Impression 55 yo female with longstanding diagnosis of schizoaffective disorder with recurrent self-harm, chronic rx of Navane/lamictal/Remeron, etc presents with worsening mood and baron following loss of pet in September 2020. Is also transitioning to a new therapist after decades of care. She has been noncompliant with a portion of her Navane dose. MNPR due to history of SIB, active SI/baron. 09/09/21: continues to express SI, contracts for safety on unit only (1) Schizoaffective disorder: (2) Obstructive sleep apnea, adult: (3) Diabetes mellitus type II, controlled: 09/09/21: risks/benefits/alternatives re-reviewed re: her current psychiatric medications, risk of TD, metabolic concerns, and also propranolol trial for tremor and akathisia. The patient agreed to propranolol 10 mg q8 prn with plan to titrate or make prn. 09/08/21: The patient was admitted to the [facility] ([facility]) on q15 min checks (behavioral with suicide precautions) for safety. The patient will participate in group, recreational, and milieu therapies and will be offered additional individual and family sessions as clinically appropriate. Risks/benefits/alternatives reviewed re: her current medication and she is willing to take as prescribed here. Blood glucose is elevated, will consider diet adjustment/gluc checks (patient wants to minimize changes at this time). S he was diagnosed with sleep apnea but is not yet prescribed a CPAP mask, this may be a safety concern around discharge. Inventory Assets Strengths: intelligent, consistent with providers Needs: coping skills, increase in activities. Suicide Risk Level Suicide Risk Level: High (q15 min suicide checks) Suicide Risk Level Comments: hx of attempts, recent note, hx of SIB on unit, is elena to go to staff at this time. Risk Factors Assessment : Yes Do You Have Access To A Gun?: No Mental Health Diagnoses: Yes Substance Use Disorders: No Previous Attempt: Yes Family History of Suicide: Yes Previous Psychiatric Hospitalization: Yes Protective Factors Assessment : Yes Employed: No Supportive Family: Yes Good Rapport with Provider: Yes Interval History Identifying Information SHALOM CORBIN is a 55-year-old F who currently lives in [place], has a history of schizoaffective disorder and multiple prior inpatient admits (last to [facility] 2012), and was admitted on 09/07/21 14:55 on a 201 voluntary commitment for SI with plan. Chief Complaint "I wrote a suicide note to my last night--is it normal for me to be so suicidal still?". Review of Systems Sleep Information Total Hours of Sleep: 7 Meal Information Percent Meal Consumed - Breakfast: 100 Percent Meal Consumed - Lunch: 100 Percent Meal Consumed - Dinner: 100 Subjective Subjective Patient was seen & assessed and interval progress reviewed with nursing and social work. Patient had just taken Vistaril prn before I saw her for complaints of restlessness and she does endorse hand tremor and possible akathisia. She states she wrote to her to "get it all out of my head" not because she w ants to end her life here. She was encouraged to view as a therapeutic activity of what she wants to tell rather than reading over and over. She denied the latter and was willing to consider writing a letter to her therapist instead reflecting on their work together. She reported to staff hearing 4 voiced and seeing bugs on floor and wall but denies auditory baron to me. Reviewed her labs and she does not gluc checks here or change in diet at this time. Discussed her thoughts on CPAP and the safety issues related to it. Physical Exam Psychiatric Orientation: alert and oriented x 3 Apperance: appropriately dressed and appropriately groomed Eye Contact: good eye contact Motor Behavior: + tremor Speech: normal rate/rhythm/volume of speech Affect: + depressed affect Mood: + depressed mood Thought Process: goal directed thought process Thought Content: reality based without delusions Suicidal Thoughts: denies suicidal intent (contracts for safety on unit); + reports suicidal thoughts and + reports suicidal plan Homicidal Thoughts: denies homicidal thoughts Hallucinations: no auditory hallucinations and no visual hallucinations Cognition: attention grossly intact and language grossly intact Estimated Intelligence: consistent with education level Insight: + limited insight Judgement: + limited judgement Vital Signs (Past 24 Hours) Last Vital Signs Temp 36.5 C 09/09/21 06:44 Pulse 82 09/09/21 10:07 Resp 18 09/09/21 06:44 BP 124/86 09/09/21 10:07 Pulse Ox 98 09/07/21 15:55 Results & Data ([facility]) Laboratory Results Laboratory Results - last 24 hr 09/08/21 09:11 [place] 0.8 Current Inpatient Medications Current Inpatient Medications: Current Inpatient Medications Acetaminophen (Acetaminophen 325 Mg Tab) 650 mg PO Q4H PRN PRN Reason: Headache or Minor Fever Stop: 10/07/21 14:54 Al Hydrox/Mg Hydrox/Simethicone (Aluminum/Magnesium Susp 30 Ml Udc) 30 ml PO Q4H PRN PRN Reason: GI Upset Stop: 10/07/21 14:54 Amantadine HCl (Amantadine Hcl 100 Mg Capsule) 100 mg PO BID ANILA Stop: 10/07/21 20:59 Last Admin: 09/09/21 08:53 Dose: 100 mg Documented by: Aspirin (Aspirin 81 Mg Ectab) 81 mg PO QPM ANILA Stop: 10/07/21 20:59 Last Admin: 09/08/21 20:40 Dose: 81 mg Documented by: Bismuth Subsalicylate (Bismuth Subsalicylate Liqd 236 Ml) 15 ml PO PRN PRN PRN Reason: Loose Stool Stop: 10/07/21 14:54 Celecoxib (Celebrex 200 Mg Cap) 200 mg PO QAM ANILA Stop: 10/08/21 08:59 Last Admin: 09/09/21 08:53 Dose: 200 mg Documented by: Fish Oil ([place]-3 (Purified Fish Oil) 1 Gm Cap) 1 gm PO BID ANILA Stop: 10/07/21 20:59 Last Admin: 09/09/21 08:54 Dose: 1 gm Documented by: Hydroxyzine HCl (Hydroxyzine Hcl 25 Mg Tab) 50 mg PO HSZ PRN PRN Reason: Insomnia Stop: 10/07/21 14:54 Hydroxyzine HCl (Hydroxyzine Hcl 25 Mg Tab) 25 mg PO Q4H PRN PRN Reason: Anxiety Stop: 10/07/21 14:54 Last Admin: 09/09/21 09:12 Dose: 25 mg Documented by: Lamotrigine (Lamotrigine 100 Mg Tab) 300 mg PO HS ANILA Stop: 10/07/21 21:59 Last Admin: 09/08/21 20:38 Dose: 300 mg Documented by: Lamotrigine (Lamotrigine 25 Mg Tab) 50 mg PO DAILY ANIL[facility] Stop: 10/08/21 08:59 Last Admin: 09/09/21 08:54 Dose: 50 mg Documented by: Levothyroxine Sodium (Levothyroxine Sodium 25 Mcg Tablet) 25 mcg PO DAILYBB [facility] Stop: 10/08/21 07:59 Last Admin: 09/09/21 08:04 Dose: 25 mcg Documented by: [place] Carbonate ([place] Carbonate Slow Rel 300 Mg Tab) 600 mg PO HS [facility] Stop: 10/07/21 21:59 Last Admin: 09/08/21 20:39 Dose: 600 mg Documented by: Lorazepam (Lorazepam 1 Mg Tab) 1 mg PO Q8 PRN PRN Reason: Agitation Stop: 10/08/21 12:49 Losartan Potassium (Losartan Potassium 50 Mg Tab) 100 mg PO QAM [facility] Stop: 10/08/21 08:59 Last Admin: 09/09/21 08:55 Dose: 100 mg Documented by: Magnesium Hydroxide (Magnesium Hydroxide Susp 30 Ml Udc) 30 ml PO DAILY PRN PRN Reason: Constipation Stop: 10/07/21 14:54 Metformin HCl (Metformin Hcl Er 500 Mg Tabcr) 500 mg PO BIDM [facility] Stop: 10/07/21 20:59 Last Admin: 09/09/21 08:55 Dose: 500 mg Documented by: Mirtazapine (Mirtazapine Soltab 15 Mg) 45 mg PO [facility] Stop: 10/07/21 21:59 Last Admin: 09/08/21 20:40 Dose: 45 mg Documented by: Propranolol HCl (Propranolol Hcl 10 Mg Tab) 10 mg PO Q8 PRN PRN Reason: restlessness Stop: 10/09/21 13:59 Rosuvastatin Calcium (Rosuvastatin Calcium 5 Mg Tab) 5 mg PO [facility] Stop: 10/07/21 21:59 Last Admin: 09/08/21 20:40 Dose: 5 mg Documented by: Sodium Chloride (Sodium Chloride 0.65% Na Soln 45 Ml ([place])) 1 - 2 sprays NA PRN PRN PRN Reason: Nasal Dryness/Congestion Stop: 10/07/21 14:54 Thiothixene (Thiothixene 5 Mg Cap) 35 mg PO [facility] Stop: 10/08/21 21:59 Last Admin: 09/08/21 20:39 Dose: 35 mg Documented by: Venlafaxine HCl (Venlafaxine Hcl Xr 150 Mg Capxr) 300 mg PO PM [facility] Stop: 10/07/21 20:59 Last Admin: 09/08/21 20:40 Dose: 300 mg Documented by: Vitamin D (Cholecalciferol 1,000 Units 25 Mcg Tab) 3,000 units PO QAM [facility] Stop: 10/08/21 08:59 Last Admin: 09/09/21 08:54 Dose: 3,000 units Documented by: Mental Health & Subst Abuse Tx Therapist Name of Therapist: Dr. Teran Post Discharge Appointments Primary Care Physician Name Of Family Doctor: [facility]- Provider Appointment Comment: [address] [place] [address] [place] [address] (1) Schizoaffective disorder Schizoaffective disorder type: unspecified Qualified Code(s): F25.9 - Schizoaffective disorder, unspecified
[2021-09-09] MEDS: PROPRANOLOL HCL 10 MG TAB PO PRN (10:56)
[2021-09-09] MEDS: LORazepam 1 MG TAB PO PRN (18:49)
[2021-09-09] MEDS: lamoTRIgine 100 MG TAB PO SCH (20:40)
[2021-09-09] MEDS: LITHIUM CARBONATE SLOW REL 300 MG TAB PO SCH (20:40)
[2021-09-09] MEDS: MIRTAZAPINE SOLTAB 15 MG PO SCH (20:40)
[2021-09-09] MEDS: VENLAFAXINE HCL XR 150 MG CAPXR PO SCH (20:41)
[2021-09-09] MEDS: ROSUVASTATIN CALCIUM 5 MG TAB PO SCH (20:41)
[2021-09-09] MEDS: THIOTHIXENE 5 MG CAP PO SCH (20:41)
[2021-09-09] MEDS: ASPIRIN 81 MG ECTAB PO SCH (20:42)
[2021-09-10] MEDS: LEVOTHYROXINE SODIUM 25 MCG TABLET PO SCH (08:42)
[2021-09-10] MEDS: CHOLECALCIFEROL 1,000 UNITS 25 MCG TAB PO SCH (08:43)
[2021-09-10] MEDS: CeleBREX 200 MG CAP PO SCH (08:43)
[2021-09-10] MEDS: AMANTADINE HCL 100 MG CAPSULE PO SCH ×2 (08:43→20:57)
[2021-09-10] MEDS: OMEGA-3 (PURIFIED FISH OIL) 1 GM CAP PO SCH ×2 (08:44→20:57)
[2021-09-10] MEDS: lamoTRIgine 25 MG TAB PO SCH (08:44)
[2021-09-10] MEDS: metFORMIN HCL ER 500 MG TABCR PO SCH ×2 (08:45→17:00)
[2021-09-10] MEDS: LOSARTAN POTASSIUM 50 MG TAB PO SCH (08:45)
[2021-09-10] MEDS: PROPRANOLOL HCL 10 MG TAB PO PRN (10:15)
--- NOTE | 2021-09-10 14:02 | Psychiatric Progress Note ---
Date of Service September 10, 2021 Impression / Recommendations Impression 55 yo female with longstanding diagnosis of schizoaffective disorder with recurrent self-harm, chronic rx of Navane/lamictal/Remeron, etc presents with worsening mood and baron following loss of pet in September 2020. Is also transitioning to a new therapist after decades of care. She has been noncompliant with a portion of her Navane dose. MNPR due to history of SIB, active SI/baron. 09/10/21: continues to express SI, care coordinated with outpatient psychiatrist. (1) Schizoaffective disorder: (2) Obstructive sleep apnea, adult: (3) Diabetes mellitus type II, controlled: 09/10/21: propranolol 10 mg Bid with meals, Dr. Crawford would support a trial of atypical in combination with Navane with hopes to taper Navane over time. Discussed Latuda based on past trials and formulary. 09/09/21: risks/benefits/alternatives re-reviewed re: her current psychiatric medications, risk of TD, metabolic concerns, and also propranolol trial for tremor and akathisia. The patient agreed to propranolol 10 mg q8 prn with plan to titrate or make prn. 09/08/21: The patient was admitted to the [facility] ([facility] inpatient mental health unit) on q15 min checks (behavioral with suicide precautions) for safety. The patient will participate in group, recreational, and milieu therapies and will be offered additional individual and family sessions as clinically appropriate. Risks/benefits/alternatives reviewed re: her current medication and she is willing to take as prescribed here. Blood glucose is elevated, will consider diet adjustment/gluc checks (patient wants to minimize changes at this time). She was diagnosed with sleep apnea but is not yet prescribed a CPAP mask, this may be a safety concern around discharge. Inventory Assets Strengths: intelligent, consistent with providers Needs: coping skills, increase in activities. Suicide Risk Level Suicide Risk Level: High (q15 min suicide checks) Suicide Risk Level Comments: hx of attempts, recent note, hx of SIB on unit, is elena to go to staff at this time. Risk Factors Assessment : Yes Do You Have Access To A Gun?: No Mental Health Diagnoses: Yes Substance Use Disorders: No Previous Attempt: Yes Family History of Suicide: Yes Previous Psychiatric Hospitalization: Yes Protective Factors Assessment : Yes Employed: No Supportive Family: Yes Good Rapport with Provider: Yes Interval History Identifying Information SHALOM CORBIN is a 55-year-old F who currently lives in [place], has a history of schizoaffective disorder and multiple prior inpatient admits (last to [facility] 2012), and was admitted on 09/07/21 14:55 on a 201 voluntary commitment for SI with plan. Chief Complaint "what if I'm still suicidal when you want to discharge me?". Review of Systems Sleep Information Total Hours of Sleep: 7.25 Meal Information Percent Meal Consumed - Breakfast: 100 Percent Meal Consumed - Lunch: 100 Percent Meal Consumed - Dinner: 100 Subjective Subjective Patient was seen & assessed and interval progress reviewed with treatment team. Patient shared the suicide note she referred to previously and a drawing of her hanging. Very concrete in processing these items. Dr. Crawford confirms she has longstanding fantasy of hanging herself in a local park, had a tree picked out, etc. He was more concerned about her overall functioning in past 6 months and patient relates the visual baron of spiders last pm were the most disturbing part of her day. I had assigned her a a therapeutic activity to write a thank you letter to her therapist and she instead started it like a suicide note. Dr. Crawford reported to me that he has been encouraging her to have a sleep study for years and feels the potential benefits to her outweigh the ligature risk when she is stable for discharge. The patient's restlessness and hand tremor are much improved with propranolol and she willing for standing order. She does not want standing order Ativan as likes for prn. Physical Exam Psychiatric Orientation: alert and oriented x 3 Apperance: appropriately dressed and appropriately groomed Eye Contact: good eye contact Motor Behavior: + tremor Speech: normal rate/rhythm/volume of speech Affect: + depressed affect Mood: + depressed mood Thought Process: goal directed thought process Thought Content: reality based without delusions Suicidal Thoughts: denies suicidal intent (contracts for safety on unit); + reports suicidal thoughts and + reports suicidal plan Homicidal Thoughts: denies homicidal thoughts Hallucinations: no auditory hallucinations and no visual hallucinations Cognition: attention grossly intact and language grossly intact Estimated Intelligence: consistent with education level Insight: + limited insight Judgement: + limited judgement Vital Signs (Past 24 Hours) Last Vital Signs Temp 36.7 C 09/10/21 06:29 Pulse 81 09/10/21 10:13 Resp 16 09/10/21 06:29 BP 115/76 09/10/21 10:13 Pulse Ox 98 09/07/21 15:55 Results & Data ([facility]) Current Inpatient Medications Current Inpatient Medications: Current Inpatient Medications Acetaminophen (Acetaminophen 325 Mg Tab) 650 mg PO Q4H PRN PRN Reason: Headache or Minor Fever Stop: 10/07/21 14:54 Al Hydrox/Mg Hydrox/Simethicone (Aluminum/Magnesium Susp 30 Ml Udc) 30 ml PO Q4H PRN PRN Reason: GI Upset Stop: 10/07/21 14:54 Amantadine HCl (Amantadine Hcl 100 Mg Capsule) 100 mg PO BID ANILA Stop: 10/07/21 20:59 Last Admin: 09/10/21 08:43 Dose: 100 mg Documented by: Aspirin (Aspirin 81 Mg Ectab) 81 mg PO QPM [facility]IL[facility] Stop: 10/07/21 20:59 Last Admin: 09/09/21 20:42 Dose: 81 mg Documented by: Bismuth Subsalicylate (Bismuth Subsalicylate Liqd 236 Ml) 15 ml PO PRN PRN PRN Reason: Loose Stool Stop: 10/07/21 14:54 Celecoxib (Celebrex 200 Mg Cap) 200 mg PO QAM [facility] Stop: 10/08/21 08:59 Last Admin: 09/10/21 08:43 Dose: 200 mg Documented by: Fish Oil ([place]-3 (Purified Fish Oil) 1 Gm Cap) 1 gm PO BID ANILA Stop: 10/07/21 20:59 Last Admin: 09/10/21 08:44 Dose: 1 gm Documented by: Hydroxyzine HCl (Hydroxyzine Hcl 25 Mg Tab) 50 mg PO HSZ PRN PRN Reason: Insomnia Stop: 10/07/21 14:54 Last Admin: 09/09/21 21:45 Dose: 50 mg Documented by: Hydroxyzine HCl (Hydroxyzine Hcl 25 Mg Tab) 25 mg PO Q4H PRN PRN Reason: Anxiety Stop: 10/07/21 14:54 Last Admin: 09/09/21 17:11 Dose: 25 mg Documented by: Lamotrigine (Lamotrigine 100 Mg Tab) 300 mg PO HS [facility]IL[facility] Stop: 10/07/21 21:59 Last Admin: 09/09/21 20:40 Dose: 300 mg Documented by: Lamotrigine (Lamotrigine 25 Mg Tab) 50 mg PO DAILY [facility] Stop: 10/08/21 08:59 Last Admin: 09/10/21 08:44 Dose: 50 mg Documented by: Levothyroxine Sodium (Levothyroxine Sodium 25 Mcg Tablet) [facility] Stop: 10/08/21 07:59 Last Admin: 09/10/21 08:42 Dose: 25 mcg Documented by: [place] Carbonate ([place] Carbonate Slow Rel 300 Mg Tab) 600 mg PO [facility] Stop: 10/07/21 21:59 Last Admin: 09/09/21 20:40 Dose: 600 mg Documented by: Lorazepam (Lorazepam 1 Mg Tab) 1 mg PO Q8 PRN PRN Reason: Agitation Stop: 10/08/21 12:49 Last Admin: 09/09/21 18:49 Dose: 1 mg Documented by: Losartan Potassium (Losartan Potassium 50 Mg Tab) [facility] Stop: 10/08/21 08:59 Last Admin: 09/10/21 08:45 Dose: 100 mg Documented by: Magnesium Hydroxide (Magnesium Hydroxide Susp 30 Ml Udc) 30 ml PO DAILY PRN PRN Reason: Constipation Stop: 10/07/21 14:54 Metformin HCl (Metformin Hcl Er 500 Mg Tabcr) 500 mg PO BIDM [facility] Stop: 10/07/21 20:59 Last Admin: 09/10/21 08:45 Dose: 500 mg Documented by: Mirtazapine (Mirtazapine Soltab 15 Mg) 45 mg PO [facility] Stop: 10/07/21 21:59 Last Admin: 09/09/21 20:40 Dose: 45 mg Documented by: Propranolol HCl (Propranolol Hcl 10 Mg Tab) 10 mg PO Q8 PRN PRN Reason: restlessness Stop: 10/09/21 13:59 Last Admin: 09/10/21 10:15 Dose: 10 mg Documented by: Propranolol HCl (Propranolol Hcl 10 Mg Tab) 10 mg PO BIDM [facility] Stop: 10/10/21 17:44 Rosuvastatin Calcium (Rosuvastatin Calcium 5 Mg Tab) 5 mg PO [facility] Stop: 10/07/21 21:59 Last Admin: 09/09/21 20:41 Dose: 5 mg Documented by: Sodium Chloride (Sodium Chloride 0.65% Na Soln 45 Ml ([place])) 1 - 2 sprays NA PRN PRN PRN Reason: Nasal Dryness/Congestion Stop: 10/07/21 14:54 Thiothixene (Thiothixene 5 Mg Cap) 35 mg PO HS [facility]IL[facility] Stop: 10/08/21 21:59 Last Admin: 09/09/21 20:41 Dose: 35 mg Documented by: Venlafaxine HCl (Venlafaxine Hcl Xr 150 Mg Capxr) 300 mg PO PM [facility] Stop: 10/07/21 20:59 Last Admin: 09/09/21 20:41 Dose: 300 mg Documented by: Vitamin D (Cholecalciferol 1,000 Units 25 Mcg Tab) 3,000 units PO QAM [facility]IL[facility] Stop: 10/08/21 08:59 Last Admin: 09/10/21 08:43 Dose: 3,000 units Documented by: Mental Health & Subst Abuse Tx Therapist Name of Therapist: Dr. Teran Post Discharge Appointments Primary Care Physician Name Of Family Doctor: [facility]- Provider Appointment Comment: [address] [place] [address] [place] [address] (1) Schizoaffective disorder Schizoaffective disorder type: unspecified Qualified Code(s): F25.9 - Schizoaffective disorder, unspecified
[2021-09-10] MEDS: PROPRANOLOL HCL 10 MG TAB PO SCH (17:36)
[2021-09-10] MEDS: ASPIRIN 81 MG ECTAB PO SCH (20:57)
[2021-09-10] MEDS: VENLAFAXINE HCL XR 150 MG CAPXR PO SCH (20:57)
[2021-09-10] MEDS: LITHIUM CARBONATE SLOW REL 300 MG TAB PO SCH (20:58)
[2021-09-10] MEDS: lamoTRIgine 100 MG TAB PO SCH (20:58)
[2021-09-10] MEDS: ROSUVASTATIN CALCIUM 5 MG TAB PO SCH (20:59)
[2021-09-10] MEDS: THIOTHIXENE 5 MG CAP PO SCH (20:59)
[2021-09-10] MEDS: MIRTAZAPINE SOLTAB 15 MG PO SCH (20:59)
[2021-09-10] MEDS: LORazepam 1 MG TAB PO PRN (21:11)
[2021-09-11] MEDS: AMANTADINE HCL 100 MG CAPSULE PO SCH ×2 (09:15→21:11)
[2021-09-11] MEDS: LEVOTHYROXINE SODIUM 25 MCG TABLET PO SCH (09:15)
[2021-09-11] MEDS: CHOLECALCIFEROL 1,000 UNITS 25 MCG TAB PO SCH (09:16)
[2021-09-11] MEDS: CeleBREX 200 MG CAP PO SCH (09:16)
[2021-09-11] MEDS: lamoTRIgine 25 MG TAB PO SCH (09:17)
[2021-09-11] MEDS: OMEGA-3 (PURIFIED FISH OIL) 1 GM CAP PO SCH ×2 (09:17→21:11)
[2021-09-11] MEDS: metFORMIN HCL ER 500 MG TABCR PO SCH ×2 (09:18→17:12)
[2021-09-11] MEDS: LOSARTAN POTASSIUM 50 MG TAB PO SCH (09:18)
[2021-09-11] MEDS: PROPRANOLOL HCL 10 MG TAB PO SCH ×2 (09:29→17:14)
--- NOTE | 2021-09-11 10:11 | Psychiatric Progress Note ---
Date of Service September 11, 2021 Impression / Recommendations Impression 55 yo female with longstanding diagnosis of schizoaffective disorder with recurrent self-harm, chronic rx of Navane/lamictal/Remeron, etc presents with worsening mood and baron following loss of pet in September 2020. Is also transitioning to a new therapist after decades of care. She has been noncompliant with a portion of her Navane dose. MNPR due to history of SIB, active SI/baron. 09/11/21: continues to express SI, agreeable to trial of Latuda for residual mood and psychosis. (1) Schizoaffective disorder: (2) Obstructive sleep apnea, adult: (3) Diabetes mellitus type II, controlled: 09/11/21: risks/benefits/alternatives reviewed re: Latuda 40 mg daily with evening meal. combo with Navane is necessary for residual symptoms and hx of extensive past medication trials. 09/10/21: propranolol 10 mg Bid with meals, Dr. Crawford would support a trial of atypical in combination with Navane with hopes to taper Navane over time. Discussed Latuda based on past trials and formulary. 09/09/21: risks/benefits/alternatives re-reviewed re: her current psychiatric medications, risk of TD, metabolic concerns, and also propranolol trial for tremor and akathisia. The patient agreed to propranolol 10 mg q8 prn with plan to titrate or make prn. 09/08/21: The patient was admitted to the [facility] ([facility] health unit) on q15 min checks (behavioral with suicide precautions) for safety. The patient will participate in group, recreational, and milieu therapies and will be offered additional individual and family sessions as clinically appropriate. Risks/benefits/alternatives reviewed re: her current medication and she is willing to take as prescribed here. Blood glucose is elevated, will consider diet adjustment/gluc checks (patient wants to minimize changes at this time). She was diagnosed with sleep apnea but is not yet prescribed a CPAP mask, this may be a safety concern around discharge. Inventory Assets Strengths: intelligent, consistent with providers Needs: coping skills, increase in activities. Suicide Risk Level Suicide Risk Level: High (q15 min suicide checks) Suicide Risk Level Comments: hx of attempts, recent note, hx of SIB on unit, is elena to go to staff at this time. Risk Factors Assessment : Yes Do You Have Access To A Gun?: No Mental Health Diagnoses: Yes Substance Use Disorders: No Previous Attempt: Yes Family History of Suicide: Yes Previous Psychiatric Hospitalization: Yes Protective Factors Assessment : Yes Employed: No Supportive Family: Yes Good Rapport with Provider: Yes Interval History Identifying Information SHALOM CORBIN is a 55-year-old F who currently lives in [place], has a history of schizoaffective disorder and multiple prior inpatient admits (last to [facility] 2012), and was admitted on 09/07/21 14:55 on a 201 voluntary commitment for SI with plan. Chief Complaint "I was still drawing nooses" Review of Systems Sleep Information Total Hours of Sleep: 7.25 Sleep Comments: pt on q-15 minute checks Meal Information Percent Meal Consumed - Breakfast: 100 Percent Meal Consumed - Lunch: 100 Percent Meal Consumed - Dinner: 75 Subjective Subjective Patient was seen & assessed and interval progress reviewed with nursing and social work. Continues to report more visual hallucinations in the evenings, spiders from shadows. Continues to endorse suicidal thoughts but does appear brighter and engaged in groups. She was journaling again and drawing rope/hangings but self redirected. Discussed having a list of alternate things she could draw or write about right in her journal. Continues to complain of restlessness and requires prn Ativan at least once a day. Propranolol helpful for tremor but had not yet had it at the time of our session today. Physical Exam Psychiatric Orientation: alert and oriented x 3 Apperance: appropriately dressed and appropriately groomed Eye Contact: good eye contact Motor Behavior: + tremor Speech: normal rate/rhythm/volume of speech Affect: + depressed affect Mood: + depressed mood Thought Process: goal directed thought process Thought Content: reality based without delusions Suicidal Thoughts: denies suicidal intent (contracts for safety on unit); + reports suicidal thoughts and + reports suicidal plan Homicidal Thoughts: denies homicidal thoughts Hallucinations: no auditory hallucinations and no visual hallucinations Cognition: attention grossly intact and language grossly intact Estimated Intelligence: consistent with education level Insight: + limited insight Judgement: + limited judgement Vital Signs (Past 24 Hours) Last Vital Signs Temp 36.5 C 09/11/21 06:41 Pulse 80 09/11/21 06:41 Resp 16 09/11/21 06:41 BP 117/81 09/11/21 06:41 Pulse Ox 98 06/10/22 15:55 Results & Data ([facility]) Current Inpatient Medications Current Inpatient Medications: Current Inpatient Medications Acetaminophen (Acetaminophen 325 Mg Tab) 650 mg PO Q4H PRN PRN Reason: Headache or Minor Fever Stop: 10/07/21 14:54 Al Hydrox/Mg Hydrox/Simethicone (Aluminum/Magnesium Susp 30 Ml Udc) 30 ml PO Q4H PRN PRN Reason: GI Upset Stop: 10/07/21 14:54 Amantadine HCl (Amantadine Hcl 100 Mg Capsule) 100 mg PO BID ANILA Stop: 10/07/21 20:59 Last Admin: 09/11/21 09:15 Dose: 100 mg Documented by: Aspirin (Aspirin 81 Mg Ectab) 81 mg PO QPM [facility] Stop: 10/07/21 20:59 Last Admin: 09/10/21 20:57 Dose: 81 mg Documented by: Bismuth Subsalicylate (Bismuth Subsalicylate Liqd 236 Ml) 15 ml PO PRN PRN PRN Reason: Loose Stool Stop: 10/07/21 14:54 Celecoxib (Celebrex 200 Mg Cap) 200 mg PO QAM [facility] Stop: 10/08/21 08:59 Last Admin: 09/11/21 09:16 Dose: 200 mg Documented by: Fish Oil ([place]-3 (Purified Fish Oil) 1 Gm Cap) 1 gm PO BID ANILA Stop: 10/07/21 20:59 Last Admin: 09/11/21 09:17 Dose: 1 gm Documented by: Hydroxyzine HCl (Hydroxyzine Hcl 25 Mg Tab) 50 mg PO HSZ PRN PRN Reason: Insomnia Stop: 10/07/21 14:54 Last Admin: 09/09/21 21:45 Dose: 50 mg Documented by: Hydroxyzine HCl (Hydroxyzine Hcl 25 Mg Tab) 25 mg PO Q4H PRN PRN Reason: Anxiety Stop: 10/07/21 14:54 Last Admin: 09/09/21 17:11 Dose: 25 mg Documented by: Lamotrigine (Lamotrigine 100 Mg Tab) 300 mg PO HS [facility]IL[facility] Stop: 10/07/21 21:59 Last Admin: 09/10/21 20:58 Dose: 300 mg Documented by: Lamotrigine (Lamotrigine 25 Mg Tab) 50 mg PO DAILY [facility] Stop: 10/08/21 08:59 Last Admin: 09/11/21 09:17 Dose: 50 mg Documented by: Levothyroxine Sodium (Levothyroxine Sodium 25 Mcg Tablet) 25 mcg PO DAILYBB [facility] Stop: 10/08/21 07:59 Last Admin: 09/11/21 09:15 Dose: 25 mcg Documented by: [place] Carbonate ([place] Carbonate Slow Rel 300 Mg Tab) 600 mg PO [facility] Stop: 10/07/21 21:59 Last Admin: 09/10/21 20:58 Dose: 600 mg Documented by: Lorazepam (Lorazepam 1 Mg Tab) 1 mg PO Q8 PRN PRN Reason: Agitation Stop: 10/08/21 12:49 Last Admin: 09/10/21 21:11 Dose: 1 mg Documented by: Losartan Potassium (Losartan Potassium 50 Mg Tab) 100 mg PO QAM [facility] Stop: 10/08/21 08:59 Last Admin: 09/11/21 09:18 Dose: 100 mg Documented by: Lurasidone HCl (Lurasidone Hcl 40 Mg Tab) 40 mg PO DAILYBD [facility] Stop: 10/11/21 17:14 Magnesium Hydroxide (Magnesium Hydroxide Susp 30 Ml Udc) 30 ml PO DAILY PRN PRN Reason: Constipation Stop: 10/07/21 14:54 Metformin HCl (Metformin Hcl Er 500 Mg Tabcr) 500 mg PO BIDM [facility] Stop: 10/07/21 20:59 Last Admin: 09/11/21 09:18 Dose: 500 mg Documented by: Mirtazapine (Mirtazapine Soltab 15 Mg) 45 mg PO [facility] Stop: 10/07/21 21:59 Last Admin: 09/10/21 20:59 Dose: 45 mg Documented by: Propranolol HCl (Propranolol Hcl 10 Mg Tab) 10 mg PO Q8 PRN PRN Reason: restlessness Stop: 10/09/21 13:59 Last Admin: 09/10/21 10:15 Dose: 10 mg Documented by: Propranolol HCl (Propranolol Hcl 10 Mg Tab) 10 mg PO BIDM [facility] Stop: 10/10/21 17:44 Last Admin: 09/11/21 09:29 Dose: 10 mg Documented by: Rosuvastatin Calcium (Rosuvastatin Calcium 5 Mg Tab) 5 mg PO [facility] Stop: 10/07/21 21:59 Last Admin: 09/10/21 20:59 Dose: 5 mg Documented by: Sodium Chloride (Sodium Chloride 0.65% Na Soln 45 Ml ([place])) 1 - 2 sprays NA PRN PRN PRN Reason: Nasal Dryness/Congestion Stop: 10/07/21 14:54 Thiothixene (Thiothixene 5 Mg Cap) 35 mg PO HS [facility] Stop: 10/08/21 21:59 Last Admin: 09/10/21 20:59 Dose: 35 mg Documented by: Venlafaxine HCl (Venlafaxine Hcl Xr 150 Mg Capxr) 300 mg PO PM [facility] Stop: 10/07/21 20:59 Last Admin: 09/10/21 20:57 Dose: 300 mg Documented by: Vitamin D (Cholecalciferol 1,000 Units 25 Mcg Tab) 3,000 units PO QAM [facility] Stop: 10/08/21 08:59 Last Admin: 09/11/21 09:16 Dose: 3,000 units Documented by: Mental Health & Subst Abuse Tx Therapist Name of Therapist: Dr. Teran Post Discharge Appointments Primary Care Physician Name Of Family Doctor: [facility]- Provider Appointment Comment: [address] [place], [place] [address] [address] (1) Schizoaffective disorder Schizoaffective disorder type: unspecified Qualified Code(s): F25.9 - Schizoaffective disorder, unspecified
[2021-09-11] MEDS: hydrOXYzine HCl 25 MG TAB PO PRN ×2 (13:11→21:13)
[2021-09-11] MEDS: LURASIDONE HCL 40 MG TAB PO SCH (17:12)
[2021-09-11] MEDS: THIOTHIXENE 5 MG CAP PO SCH (21:08)
[2021-09-11] MEDS: MIRTAZAPINE SOLTAB 15 MG PO SCH (21:08)
[2021-09-11] MEDS: ROSUVASTATIN CALCIUM 5 MG TAB PO SCH (21:09)
[2021-09-11] MEDS: lamoTRIgine 100 MG TAB PO SCH (21:10)
[2021-09-11] MEDS: LITHIUM CARBONATE SLOW REL 300 MG TAB PO SCH (21:10)
[2021-09-11] MEDS: ASPIRIN 81 MG ECTAB PO SCH (21:11)
[2021-09-11] MEDS: VENLAFAXINE HCL XR 150 MG CAPXR PO SCH (21:12)
[2021-09-12] MEDS: LORazepam 1 MG TAB PO PRN (00:03)
[2021-09-12] MEDS: LEVOTHYROXINE SODIUM 25 MCG TABLET PO SCH (09:18)
[2021-09-12] MEDS: LOSARTAN POTASSIUM 50 MG TAB PO SCH (09:19)
[2021-09-12] MEDS: PROPRANOLOL HCL 10 MG TAB PO SCH ×2 (09:21→17:25)
[2021-09-12] MEDS: metFORMIN HCL ER 500 MG TABCR PO SCH ×2 (09:22→17:25)
[2021-09-12] MEDS: lamoTRIgine 25 MG TAB PO SCH (09:22)
[2021-09-12] MEDS: OMEGA-3 (PURIFIED FISH OIL) 1 GM CAP PO SCH ×2 (09:23→20:36)
[2021-09-12] MEDS: CHOLECALCIFEROL 1,000 UNITS 25 MCG TAB PO SCH (09:23)
[2021-09-12] MEDS: CeleBREX 200 MG CAP PO SCH (09:25)
[2021-09-12] MEDS: AMANTADINE HCL 100 MG CAPSULE PO SCH ×2 (09:26→20:35)
--- NOTE | 2021-09-12 09:51 | Psychiatric Progress Note ---
Date of Service September 12, 2021 Impression / Recommendations Impression 55 yo female with longstanding diagnosis of schizoaffective disorder with recurrent self-harm, chronic rx of Navane/lamictal/Remeron, etc presents with worsening mood and baron following loss of pet in September 2020. Is also transitioning to a new therapist after decades of care. She has been noncompliant with a portion of her Navane dose. MNPR due to history of SIB, active SI/baron. 09/12/21: some improvement, still unable to safety plan (1) Schizoaffective disorder: (2) Obstructive sleep apnea, adult: (3) Diabetes mellitus type II, controlled: 09/12/21: tolerating Latuda, EKG given polypharmacy, propranolol remains helpful 09/11/21: risks/benefits/alternatives reviewed re: Latuda 40 mg daily with evening meal. combo with Navane is necessary for residual symptoms and hx of extensive past medication trials. 09/10/21: propranolol 10 mg Bid with meals, Dr. Crawford would support a trial of atypical in combination with Navane with hopes to taper Navane over time. Discussed Latuda based on past trials and formulary. 09/09/21: risks/benefits/alternatives re-reviewed re: her current psychiatric medications, risk of TD, metabolic concerns, and also propranolol trial for tremor and akathisia. The patient agreed to propranolol 10 mg q8 prn with plan to titrate or make prn. 09/08/21: The patient was admitted to the [facility] ([facility]) on q15 min checks (behavioral with suicide precautions) for safety. The patient will participate in group, recreational, and milieu therapies and will be offered additional individual and family sessions as clinically appropriate. Risks/benefits/alternatives reviewed re: her current medication and she is willing to take as prescribed here. Blood glucose is elevated, will consider diet adjustment/gluc checks (patient wants to minimize changes at this time). She was diagnosed with sleep apnea but is not yet prescribed a CPAP mask, this may be a safety concern around discharge. Inventory Assets Strengths: intelligent, consistent with providers Needs: coping skills, increase in activities. Suicide Risk Level Suicide Risk Level: High (q15 min suicide checks) Suicide Risk Level Comments: hx of attempts, recent note, hx of SIB on unit, is elena to go to staff at this time. Risk Factors Assessment : Yes Do You Have Access To A Gun?: No Mental Health Diagnoses: Yes Substance Use Disorders: No Previous Attempt: Yes Family History of Suicide: Yes Previous Psychiatric Hospitalization: Yes Protective Factors Assessment : Yes Employed: No Supportive Family: Yes Good Rapport with Provider: Yes Interval History Identifying Information SHALOM CORBIN is a 55-year-old F who currently lives in [place], has a history of schizoaffective disorder and multiple prior inpatient admits (last to [facility] 2012), and was admitted on 09/07/21 14:55 on a 201 voluntary commitment for SI with plan. Chief Complaint "I just don't feel ready yet". Review of Systems Sleep Information Total Hours of Sleep: 6 Sleep Comments: pt on q-15 minute checks Meal Information Percent Meal Consumed - Breakfast: 100 Percent Meal Consumed - Lunch: 100 Percent Meal Consumed - Dinner: 100 Subjective Subjective Patient was seen & assessed and interval progress reviewed with treatment team. She appears brighter at times in interactions though typically rates mood as a 4. Cooperative with meeting with . Less preoccupied with morbid themes yesterday and had fewer visual baron last pm but still had DFA and requested Ativan prn. Physical Exam Psychiatric Orientation: alert and oriented x 3 Apperance: appropriately dressed and appropriately groomed Eye Contact: good eye contact Motor Behavior: n tremor Speech: normal rate/rhythm/volume of speech Affect: + depressed affect Mood: + depressed mood Thought Process: goal directed thought process Thought Content: reality based without delusions Suicidal Thoughts: denies suicidal intent (contracts for safety on unit); + reports suicidal thoughts (but decreased and more passive) and + reports suicidal plan Homicidal Thoughts: denies homicidal thoughts Hallucinations: no auditory hallucinations and no visual hallucinations Cognition: attention grossly intact and language grossly intact Estimated Intelligence: consistent with education level Insight: + limited insight Judgement: + limited judgement Vital Signs (Past 24 Hours) Last Vital Signs Temp 36.7 C 09/12/21 06:26 Pulse 83 09/12/21 06:26 Resp 16 09/12/21 06:26 BP 105/72 09/12/21 06:26 Pulse Ox 98 09/07/21 15:55 Results & Data ([facility]) Current Inpatient Medications Current Inpatient Medications: Current Inpatient Medications Acetaminophen (Acetaminophen 325 Mg Tab) 650 mg PO Q4H PRN PRN Reason: Headache or Minor Fever Stop: 10/07/21 14:54 Al Hydrox/Mg Hydrox/Simethicone (Aluminum/Magnesium Susp 30 Ml Udc) 30 ml PO Q4H PRN PRN Reason: GI Upset Stop: 10/07/21 14:54 Amantadine HCl (Amantadine Hcl 100 Mg Capsule) 100 mg PO BID ANILA Stop: 10/07/21 20:59 Last Admin: 09/12/21 09:26 Dose: 100 mg Documented by: Aspirin (Aspirin 81 Mg Ectab) 81 mg PO QPM [facility] Stop: 10/07/21 20:59 Last Admin: 09/11/21 21:11 Dose: 81 mg Documented by: Bismuth Subsalicylate (Bismuth Subsalicylate Liqd 236 Ml) 15 ml PO PRN PRN PRN Reason: Loose Stool Stop: 10/07/21 14:54 Celecoxib (Celebrex 200 Mg Cap) 200 mg PO QAM [facility] Stop: 10/08/21 08:59 Last Admin: 09/12/21 09:25 Dose: 200 mg Documented by: Fish Oil ([place]-3 (Purified Fish Oil) 1 Gm Cap) 1 gm PO BID ANILA Stop: 10/07/21 20:59 Last Admin: 09/12/21 09:23 Dose: 1 gm Documented by: Hydroxyzine HCl (Hydroxyzine Hcl 25 Mg Tab) 50 mg PO HSZ PRN PRN Reason: Insomnia Stop: 10/07/21 14:54 Last Admin: 09/11/21 21:13 Dose: 50 mg Documented by: Hydroxyzine HCl (Hydroxyzine Hcl 25 Mg Tab) 25 mg PO Q4H PRN PRN Reason: Anxiety Stop: 10/07/21 14:54 Last Admin: 09/11/21 13:11 Dose: 25 mg Documented by: Lamotrigine (Lamotrigine 100 Mg Tab) 300 mg PO HS ANILA Stop: 10/07/21 21:59 Last Admin: 09/11/21 21:10 Dose: 300 mg Documented by: Lamotrigine (Lamotrigine 25 Mg Tab) 50 mg PO DAILY [facility] Stop: 10/08/21 08:59 Last Admin: 09/12/21 09:22 Dose: 50 mg Documented by: Levothyroxine Sodium (Levothyroxine Sodium 25 Mcg Tablet) 25 mcg PO DAILYBB [facility] Stop: 10/08/21 07:59 Last Admin: 09/12/21 09:18 Dose: 25 mcg Documented by: [place] Carbonate ([place] Carbonate Slow Rel 300 Mg Tab) 600 mg PO [facility] Stop: 10/07/21 21:59 Last Admin: 09/11/21 21:10 Dose: 600 mg Documented by: Lorazepam (Lorazepam 1 Mg Tab) 1 mg PO Q8 PRN PRN Reason: Agitation Stop: 10/08/21 12:49 Last Admin: 09/12/21 00:03 Dose: 1 mg Documented by: Losartan Potassium (Losartan Potassium 50 Mg Tab) 100 mg PO QAM [facility] Stop: 10/08/21 08:59 Last Admin: 09/12/21 09:19 Dose: 100 mg Documented by: Lurasidone HCl (Lurasidone Hcl 40 Mg Tab) [address] [facility] Stop: 10/11/21 17:14 Last Admin: 09/11/21 17:12 Dose: 40 mg Documented by: Magnesium Hydroxide (Magnesium Hydroxide Susp 30 Ml Udc) 30 ml PO DAILY PRN PRN Reason: Constipation Stop: 10/07/21 14:54 Metformin HCl (Metformin Hcl Er 500 Mg Tabcr) 500 mg PO [facility]M [facility] Stop: 10/07/21 20:59 Last Admin: 09/12/21 09:22 Dose: 500 mg Documented by: Mirtazapine (Mirtazapine Soltab 15 Mg) 45 mg PO [facility] Stop: 10/07/21 21:59 Last Admin: 09/11/21 21:08 Dose: 45 mg Documented by: Propranolol HCl (Propranolol Hcl 10 Mg Tab) 10 mg PO Q8 PRN PRN Reason: restlessness Stop: 10/09/21 13:59 Last Admin: 09/10/21 10:15 Dose: 10 mg Documented by: Propranolol HCl (Propranolol Hcl 10 Mg Tab) 10 mg PO [facility] Stop: 10/10/21 17:44 Last Admin: 09/12/21 09:21 Dose: 10 mg Documented by: Rosuvastatin Calcium (Rosuvastatin Calcium 5 Mg Tab) 5 mg PO [facility] Stop: 10/07/21 21:59 Last Admin: 09/11/21 21:09 Dose: 5 mg Documented by: Sodium Chloride (Sodium Chloride 0.65% Na Soln 45 Ml ([place])) 1 - 2 sprays NA PRN PRN PRN Reason: Nasal Dryness/Congestion Stop: 10/07/21 14:54 Thiothixene (Thiothixene 5 Mg Cap) 35 mg PO HS ANILA Stop: 10/08/21 21:59 Last Admin: 09/11/21 21:08 Dose: 35 mg Documented by: Venlafaxine HCl (Venlafaxine Hcl Xr 150 Mg Capxr) 300 mg PO PM [facility] Stop: 10/07/21 20:59 Last Admin: 09/11/21 21:12 Dose: 300 mg Documented by: Vitamin D (Cholecalciferol 1,000 Units 25 Mcg Tab) 3,000 units PO QAM [facility] Stop: 10/08/21 08:59 Last Admin: 09/12/21 09:23 Dose: 3,000 units Documented by: Mental Health & Subst Abuse Tx Therapist Name of Therapist: Dr. Teran Post Discharge Appointments Primary Care Physician Name Of Family Doctor: [facility]- Provider Appointment Comment: [address] [place] [address] [place] [address] (1) Schizoaffective disorder Schizoaffective disorder type: unspecified Qualified Code(s): F25.9 - Schizoaffective disorder, unspecified
[2021-09-12] MEDS: LURASIDONE HCL 40 MG TAB PO SCH (17:27)
--- NOTE | 2021-09-12 17:42 | Electrocardiogram Report ---
Test Reason : Blood Pressure : / mmHG Vent. Rate : 064 BPM Atrial Rate : 064 BPM P-R Int : 158 ms QRS Dur : 098 ms QT Int : 414 ms P-R-T Axes : 047 -24 122 degrees QTc Int : 427 ms Normal sinus rhythm T wave abnormality, consider lateral ischemia Abnormal ECG When compared with ECG of 27-JAN-2020 12:22, Vent. rate has decreased BY 42 BPM Inverted T waves have replaced nonspecific T wave abnormality in Lateral leads Confirmed by Ezra Gurrola ([id number]) on 09/12/2021 5:42:09 PM Referred By: REFERRED SELF Confirmed By:uLciano Gurrola
[2021-09-12] MEDS: hydrOXYzine HCl 25 MG TAB PO PRN (20:34)
[2021-09-12] MEDS: ASPIRIN 81 MG ECTAB PO SCH (20:35)
[2021-09-12] MEDS: lamoTRIgine 100 MG TAB PO SCH (20:36)
[2021-09-12] MEDS: VENLAFAXINE HCL XR 150 MG CAPXR PO SCH (20:36)
[2021-09-12] MEDS: LITHIUM CARBONATE SLOW REL 300 MG TAB PO SCH (20:37)
[2021-09-12] MEDS: MIRTAZAPINE SOLTAB 15 MG PO SCH (20:37)
[2021-09-12] MEDS: ROSUVASTATIN CALCIUM 5 MG TAB PO SCH (20:38)
[2021-09-12] MEDS: THIOTHIXENE 5 MG CAP PO SCH (20:38)
[2021-09-13] MEDS: LEVOTHYROXINE SODIUM 25 MCG TABLET PO SCH (08:31)
[2021-09-13] MEDS: AMANTADINE HCL 100 MG CAPSULE PO SCH (08:46)
[2021-09-13] MEDS: CeleBREX 200 MG CAP PO SCH (08:46)
[2021-09-13] MEDS: lamoTRIgine 25 MG TAB PO SCH (08:47)
[2021-09-13] MEDS: OMEGA-3 (PURIFIED FISH OIL) 1 GM CAP PO SCH (08:47)
[2021-09-13] MEDS: CHOLECALCIFEROL 1,000 UNITS 25 MCG TAB PO SCH (08:47)
[2021-09-13] MEDS: LOSARTAN POTASSIUM 50 MG TAB PO SCH (08:47)
[2021-09-13] MEDS: PROPRANOLOL HCL 10 MG TAB PO SCH (08:48)
[2021-09-13] MEDS: metFORMIN HCL ER 500 MG TABCR PO SCH (08:48)
--- NOTE | 2021-09-13 09:12 | Psychiatric Progress Note ---
Date of Service September 13, 2021 Impression / Recommendations Impression 55 yo female with longstanding diagnosis of schizoaffective disorder with recurrent self-harm, chronic rx of Navane/lamictal/Remeron, etc presents with worsening mood and baron following loss of pet in September 2020. Is also transitioning to a new therapist after decades of care. She has been noncompliant with a portion of her Navane dose. MNPR due to history of SIB, active SI/baron. 09/12/21: some improvement, still unable to safety plan (1) Schizoaffective disorder: (2) Obstructive sleep apnea, adult: (3) Diabetes mellitus type II, controlled: 09/12/21: tolerating Latuda, EKG given polypharmacy, propranolol remains helpful 09/11/21: risks/benefits/alternatives reviewed re: Latuda 40 mg daily with evening meal. combo with Navane is necessary for residual symptoms and hx of extensive past medication trials. 09/10/21: propranolol 10 mg Bid with meals, Dr. Crawford would support a trial of atypical in combination with Navane with hopes to taper Navane over time. Discussed Latuda based on past trials and formulary. 09/09/21: risks/benefits/alternatives re-reviewed re: her current psychiatric medications, risk of TD, metabolic concerns, and also propranolol trial for tremor and akathisia. The patient agreed to propranolol 10 mg q8 prn with plan to titrate or make prn. 09/08/21: The patient was admitted to the [facility] ([facility] mental health unit) on q15 min checks (behavioral with suicide precautions) for safety. The patient will participate in group, recreational, and milieu therapies and will be offered additional individual and family sessions as clinically appropriate. Risks/benefits/alternatives reviewed re: her current medication and she is willing to take as prescribed here. Blood glucose is elevated, will consider diet adjustment/gluc checks (patient wants to minimize changes at this time). She was diagnosed with sleep apnea but is not yet prescribed a CPAP mask, this may be a safety concern around discharge. Inventory Assets Strengths: intelligent, consistent with providers Needs: coping skills, increase in activities. Suicide Risk Level Suicide Risk Level: High (q15 min suicide checks) Suicide Risk Level Comments: hx of attempts, recent note, hx of SIB on unit, is elena to go to staff at this time. Risk Factors Assessment : Yes Do You Have Access To A Gun?: No Mental Health Diagnoses: Yes Substance Use Disorders: No Previous Attempt: Yes Family History of Suicide: Yes Previous Psychiatric Hospitalization: Yes Protective Factors Assessment : Yes Employed: No Supportive Family: Yes Good Rapport with Provider: Yes Interval History Identifying Information SHALOM CORBIN is a 55-year-old F who currently lives in [place], has a history of schizoaffective disorder and multiple prior inpatient admits (last to [facility] 2012), and was admitted on 09/07/21 14:55 on a 201 voluntary commitment for SI with plan. Review of Systems Sleep Information Total Hours of Sleep: 8 Sleep Comments: pt on q-15 minute checks Meal Information Percent Meal Consumed - Breakfast: 100 Percent Meal Consumed - Lunch: 100 Percent Meal Consumed - Dinner: 100 Subjective Subjective Patient was seen & assessed and interval progress reviewed with nursing and social work. Physical Exam Psychiatric Orientation: alert and oriented x 3 Apperance: appropriately dressed and appropriately groomed Eye Contact: good eye contact Motor Behavior: n tremor Speech: normal rate/rhythm/volume of speech Affect: + depressed affect Mood: + depressed mood Thought Process: goal directed thought process Thought Content: reality based without delusions Suicidal Thoughts: denies suicidal intent (contracts for safety on unit); + reports suicidal thoughts (but decreased and more passive) and + reports suicidal plan Homicidal Thoughts: denies homicidal thoughts Hallucinations: no auditory hallucinations and no visual hallucinations Cognition: attention grossly intact and language grossly intact Estimated Intelligence: consistent with education level Insight: + limited insight Judgement: + limited judgement Vital Signs (Past 24 Hours) Last Vital Signs Temp 36.7 C 09/13/21 06:00 Pulse 84 09/13/21 08:53 Resp 16 09/13/21 06:00 BP 133/87 09/13/21 08:53 Pulse Ox 98 09/07/21 15:55 Results & Data ([facility]) Current Inpatient Medications Current Inpatient Medications: Current Inpatient Medications Acetaminophen (Acetaminophen 325 Mg Tab) 650 mg PO Q4H PRN PRN Reason: Headache or Minor Fever Stop: 10/07/21 14:54 Al Hydrox/Mg Hydrox/Simethicone (Aluminum/Magnesium Susp 30 Ml Udc) 30 ml PO Q4H PRN PRN Reason: GI Upset Stop: 10/07/21 14:54 Amantadine HCl (Amantadine Hcl 100 Mg Capsule) 100 mg PO BID [facility] Stop: 10/07/21 20:59 Last Admin: 09/13/21 08:46 Dose: 100 mg Documented by: Aspirin (Aspirin 81 Mg Ectab) 81 mg PO QPM ANILA Stop: 10/07/21 20:59 Last Admin: 09/12/21 20:35 Dose: 81 mg Documented by: Bismuth Subsalicylate (Bismuth Subsalicylate Liqd 236 Ml) 15 ml PO PRN PRN PRN Reason: Loose Stool Stop: 10/07/21 14:54 Celecoxib (Celebrex 200 Mg Cap) 200 mg PO QAM [facility] Stop: 10/08/21 08:59 Last Admin: 09/13/21 08:46 Dose: 200 mg Documented by: Fish Oil ([place]-3 (Purified Fish Oil) 1 Gm Cap) 1 gm PO BID [facility] Stop: 10/07/21 20:59 Last Admin: 09/13/21 08:47 Dose: 1 gm Documented by: Hydroxyzine HCl (Hydroxyzine Hcl 25 Mg Tab) 50 mg PO HSZ PRN PRN Reason: Insomnia Stop: 10/07/21 14:54 Last Admin: 09/12/21 20:34 Dose: 50 mg Documented by: Hydroxyzine HCl (Hydroxyzine Hcl 25 Mg Tab) 25 mg PO Q4H PRN PRN Reason: Anxiety Stop: 10/07/21 14:54 Last Admin: 09/11/21 13:11 Dose: 25 mg Documented by: Lamotrigine (Lamotrigine 100 Mg Tab) 300 mg PO [facility] Stop: 10/07/21 21:59 Last Admin: 09/12/21 20:36 Dose: 300 mg Documented by: Lamotrigine (Lamotrigine 25 Mg Tab) 50 mg PO DAILY [facility] Stop: 10/08/21 08:59 Last Admin: 09/13/21 08:47 Dose: 50 mg Documented by: Levothyroxine Sodium (Levothyroxine Sodium 25 Mcg Tablet) [facility] Stop: 10/08/21 07:59 Last Admin: 09/13/21 08:31 Dose: 25 mcg Documented by: Forada Carbonate (Forada Carbonate Slow Rel 300 Mg Tab) 600 mg PO HS ANILA Stop: 10/07/21 21:59 Last Admin: 09/12/21 20:37 Dose: 600 mg Documented by: Lorazepam (Lorazepam 1 Mg Tab) 1 mg PO Q8 PRN PRN Reason: Agitation Stop: 10/08/21 12:49 Last Admin: 09/12/21 00:03 Dose: 1 mg Documented by: Losartan Potassium (Losartan Potassium 50 Mg Tab) 100 mg PO QAM [facility] Stop: 10/08/21 08:59 Last Admin: 09/13/21 08:47 Dose: 100 mg Documented by: Lurasidone HCl (Lurasidone Hcl 40 Mg Tab) 40 mg PO DAILYBD [facility]IL[facility] Stop: 10/11/21 17:14 Last Admin: 09/12/21 17:27 Dose: 40 mg Documented by: Magnesium Hydroxide (Magnesium Hydroxide Susp 30 Ml Udc) 30 ml PO DAILY PRN PRN Reason: Constipation Stop: 10/07/21 14:54 Metformin HCl (Metformin Hcl Er 500 Mg Tabcr) 500 mg PO BIDM [facility] Stop: 10/07/21 20:59 Last Admin: 09/13/21 08:48 Dose: 500 mg Documented by: Mirtazapine (Mirtazapine Soltab 15 Mg) 45 mg PO HS [facility] Stop: 10/07/21 21:59 Last Admin: 09/12/21 20:37 Dose: 45 mg Documented by: Propranolol HCl (Propranolol Hcl 10 Mg Tab) 10 mg PO Q8 PRN PRN Reason: restlessness Stop: 10/09/21 13:59 Last Admin: 09/10/21 10:15 Dose: 10 mg Documented by: Propranolol HCl (Propranolol Hcl 10 Mg Tab) 10 mg PO BIDM ANIL[facility] Stop: 10/10/21 17:44 Last Admin: 09/13/21 08:48 Dose: 10 mg Documented by: Rosuvastatin Calcium (Rosuvastatin Calcium 5 Mg Tab) 5 mg PO HS ANILA Stop: 10/07/21 21:59 Last Admin: 09/12/21 20:38 Dose: 5 mg Documented by: Sodium Chloride (Sodium Chloride 0.65% Na Soln 45 Ml ([place])) 1 - 2 sprays NA PRN PRN PRN Reason: Nasal Dryness/Congestion Stop: 10/07/21 14:54 Thiothixene (Thiothixene 5 Mg Cap) 35 mg PO HS ANILA Stop: 10/08/21 21:59 Last Admin: 09/12/21 20:38 Dose: 35 mg Documented by: Venlafaxine HCl (Venlafaxine Hcl Xr 150 Mg Capxr) 300 mg PO PM [facility] Stop: 10/07/21 20:59 Last Admin: 09/12/21 20:36 Dose: 300 mg Documented by: Vitamin D (Cholecalciferol 1,000 Units 25 Mcg Tab) 3,000 units PO QAM [facility] Stop: 10/08/21 08:59 Last Admin: 09/13/21 08:47 Dose: 3,000 units Documented by: Mental Health & Subst Abuse Tx Psychiatrist Name of Psychiatrist: [facility] - Dr. Crawford Psychiatrist's Psychiatric Appointment Comment: [address] [place] [address], [place] [address] Therapist Name of Therapist: Dr. Teran Therapist's , Ext. [phone] Date of Therapist Appointment: 09/19/21 Time of Therapist Appointment: 3:00pm Therapy Appointment Comment: via zoom; Callie will send the link Post Discharge Appointments Primary Care Physician Name Of Family Doctor: [facility] - Dr. Green [facility] Date of Appointment with PCP: 09/18/21 Time of Appointment with PCP: 2:00 PM Provider Appointment Comment: [address] [place], [place] [address] [address] Other #1: Name of Aftercare Appointment: Arianne Piedra MS, [employer]ATOR Phone Number of Aftercare Appointment: [phone] ext. [phone] Aftercare Appointment Comment: [address] [place] [address], [place] [address] (1) Schizoaffective disorder Schizoaffective disorder type: unspecified Qualified Code(s): F25.9 - Schizoaffective disorder, unspecified
--- NOTE | 2021-09-13 10:20 | Discharge Summary ---
Date of Service September 13, 2021 History of Present Illness The patient was last hospitalized 4 years ago ([place]) and last SIB was 1 year ago. She has continued to be compliant with her longstanding medications, weekly therapy (Dr. Callie Teran) and medication appointments with Dr. Crawford. Her dog recently as she has been experiencing more preoccupation with and auditory and visual hallucinations. She has thought about hanging herself and reported knowing how to do so at home with access to rope, how to tie a noose, etc. She was referred to the ED for assessment and agreed to inpatient care. She has a history of seeing bugs, reported hearing her name called and/or seeing legs as a "flash" in her peripheral vision. She admits that she has not been taking her Navane as prescribed (taking 30 instead of 35 mg for a few months without notifying her prescriber). She is in the processing of transitioning to [facility] for therapy as her provider of 30 years has relocated/retired. She shared a suicide note that she wrote to her mother 3 days before coming to the hospital. She wrote out thoughts about being bored and lonely at home. Her works in the basement and she doesn't like bothering them. She states she has been eating well. Sleep is "better here" and does nap during the day due to some sedation. She is clear that her mood "tanked" first before her hallucinations worsened. It should be noted that during her last inpatient stay she required 1-on-1 obs for self-injury (digging at sutures) and hit a plastic spoon under her mattress (2012). She was initially placed on safe tray on transition to the unit but has been cooperative with unit routines so far and it was discontinued this am. Physical Exam Psychiatric See admission H&P and DOD assessment. Vital Signs (Past 24 Hours) Last Vital Signs Temp 36.7 C 09/13/21 06:00 Pulse 84 09/13/21 08:53 Resp 16 09/13/21 06:00 BP 133/87 09/13/21 08:53 Pulse Ox 98 09/07/21 15:55 Principal Diagnosis schizoaffective disorder Psychiatric Data See daily stay summary. In short, safety was maintained and the patient was cooperative with care. Medication changes included taking Navane as prescribed, propranolol BID for akathisia/tremor, and starting a trial of Latuda and they tolerated this well. An EKG was obtained day prior to discharge given polypharmacy and QTc was normal. She benefited from occasional use of Vistaril and Ativan and is requesting a small supply of both as anticipates some increase in anxiety with transition home. Her will continued to secure/assist in overseeing her medication. He participated in a good family session during her stay. A safety plan was completed prior to discharge. Marla was initially minimizing the effect of her therapist's half-way on her mood but insight improved in this area. Both her therapist and outpatient psychiatrist have encouraged her to seek a sleep study for some time and support the use of CPAP as the potential benefits outweigh the ligature risk and can be mitigated should her condition worsen. She will have a follow up in lab for the mask fitting/settings per primary care/sleep lab. Her psychiatrist confirms that her preoccupation with her suicide plan has been a longstanding issue (hanging self in [place]). Earlier in her stay she wrote suicide notes and roberto pictures of hangings but focus on this decreased and in fact she agrees to shred those items prior to discharge so doesn't "carry with me." Marla continues to endorse low mood but her suicidal thoughts are less intense and "not associated with any emotion or intent". She is able to redirect them. Her visual hallucinations decreased with the addition of Latuda. The patient, a former nurse, is well aware of the risks/benefits of her current medications and polypharmacy. She agrees not to drive or combine Vistaril or Ativan with other sedating substances. She is aware of intermediate manager need for monitoring and desires to work with her outpatient psychiatrist to limited polypharmacy over time. Day of Discharge Assessment Today the patient voices readiness for discharge. They note improvement in mood and deny thoughts to harm self or others. Thoughts remain organized and they are improved from admission. There is no evidence of thought disorganization or impulsivity. They agree to take mediations as prescribed and keep follow-up appointments. They are stable for discharge to outpatient level of care. Dr. Crawford was updated and since her appointment had to be rescheduled he confirms he will be able to work her into his schedule next week. Transition of Care Transition Of Care Record: was reviewed with the patient Advance Directives Advance Directives Information Provided: No Advance Directives: No Mental Health Advance Directive: No Advance Directives on File: No Living Will: No Power of Assembler Wet Wash: No Advance Directives Reason:: Declines as Mental Health Visit. Suicide Risk Level Suicide Risk Level Comments: Suicide risk at discharge is deemed low from an inpatient standpoint as the sara ent is no longer requiring 24-hr monitoring, has a safety plan, and is free of suicidal ideation at discharge. She has chronic long-term risk factors that contribute to her being a moderate to high risk to manage on an outpatient basis but the factors that can be addressed/mitigated by inpatient stay have been addressed. Risk Factors Assessment : Yes Do You Have Access To A Gun?: No Mental Health Diagnoses: Yes Substance Use Disorders: No Previous Attempt: Yes Family History of Suicide: Yes Previous Psychiatric Hospitalization: Yes Protective Factors Assessment : Yes Employed: No Supportive Family: Yes Good Rapport with Provider: Yes Tobacco Cessation at Discharge Tobacco Cessation Medication Prescribed at Discharge: Not Applicable/Non-Smoker Antipsychotic Medications The patient is continuing 2 antipsychotics due to: A history of a minimum of 3 failed trials of monotherapy (LIST): see H&P Other rationale: breakthrough despite longstanding rx of Navane. Total Time Total Time Spent: Greater Than 30 Minutes Total Time Includes: Examination of the patient, Discharge Planning and Medication Reconciliation Discharge Data Lab Results 09/07/21 09/07/21 09/07/21 11:38 11:38 11:38 WBC 8.49 RBC 4.65 Hgb 14.7 Hct 44.0 MCV 94.6 MCH 31.6 MCHC 33.4 RDW Std Deviation 45.2 RDW Coeff of Aries 13.0 Plt Count 281 MPV 9.9 Immature Gran % (Auto) 0.6 Neut % (Auto) 72.3 Lymph % (Auto) 19.3 Stephens % (Auto) 6.5 Eos % (Auto) 1.2 Baso % (Auto) 0.1 Neut # (Auto) 6.14 Lymph # (Auto) 1.64 Stephens # (Auto) 0.55 Eos # (Auto) 0.10 Baso # (Auto) 0.01 Immature Gran # (Auto) 0.05 H Sodium 138 Potassium 3.8 Chloride 105 Carbon Dioxide 25 Anion Gap 8 BUN 21 Creatinine 1.11 Est Cr Clr Drug Dosing 65.4 Est GFR ( Amer) 64.3 Est GFR (Non-Af Amer) 55.5 BUN/Creatinine Ratio 18.9 Glucose 146 H Fasting Glucose Calcium 10.8 H Total Bilirubin 0.6 AST 14 ALT 26 Alkaline Phosphatase 66 Total Protein 8.1 Albumin 5.2 H Globulin 2.9 Albumin/Globulin Ratio 1.8 Triglycerides Cholesterol LDL Cholesterol, Calc VLDL Cholesterol, Calc HDL Cholesterol Cholesterol/HDL Ratio TSH 3.298 Urine Color Urine Appearance Urine pH Ur Specific [place]minence Urine Protein Urine Glucose (UA) Urine Ketones Urine Blood Urine Nitrite Urine Bilirubin Urine Urobilinogen Ur Leukocyte Esterase Urine WBC (Auto) Urine RBC (Auto) U Hyaline Cast (Auto) U Epithel Cells (Auto) Urine Bacteria (Auto) POC Ur Test Salicylates Urine Opiates Screen Ur Methadone, Qual Acetaminophen Urine Barbiturates Ur Phencyclidine (PCP) U Amphetamin/Meth Scrn MDMA (Ecstasy) Screen U Benzodiazepines Scrn [place] Ur Cocaine Metabolite U Marijuana (THC) Screen Ethyl Alcohol mg/dL SARS-CoV-2, RNA, NAAT 09/07/21 09/07/21 09/07/21 11:38 11:38 11:38 WBC RBC Hgb Hct MCV MCH MCHC RDW Std Deviation RDW Coeff of Aries Plt Count MPV Immature Gran % (Auto) Neut % (Auto) Lymph % (Auto) Stephens % (Auto) Eos % (Auto) Baso % (Auto) Neut # (Auto) Lymph # (Auto) Stephens # (Auto) Eos # (Auto) Baso # (Auto) Immature Gran # (Auto) Sodium Potassium Chloride Carbon Dioxide Anion Gap BUN Creatinine Est Cr Clr Drug Dosing Est GFR ( Amer) Est GFR (Non-Af Amer) BUN/Creatinine Ratio Glucose Fasting Glucose Calcium Total Bilirubin AST ALT Alkaline Phosphatase Total Protein Albumin Globulin Albumin/Globulin Ratio Triglycerides Cholesterol LDL Cholesterol, Calc VLDL Cholesterol, Calc HDL Cholesterol Cholesterol/HDL Ratio TSH Urine Color Urine Appearance Urine pH Ur Specific Eminence Urine Protein Urine Glucose (UA) Urine Ketones Urine Blood Urine Nitrite Urine Bilirubin Urine Urobilinogen Ur Leukocyte Esterase Urine WBC (Auto) Urine RBC (Auto) U Hyaline Cast (Auto) U Epithel Cells (Auto) Urine Bacteria (Auto) POC Ur Test Salicylates < 3.0 L Urine Opiates Screen Ur Methadone, Qual Acetaminophen < 3 L Urine Barbiturates Ur Phencyclidine (PCP) U Amphetamin/Meth Scrn MDMA (Ecstasy) Screen U Benzodiazepines Scrn [place] 0.6 Ur Cocaine Metabolite U Marijuana (THC) Screen Ethyl Alcohol mg/dL < 10.0 SARS-CoV-2, RNA, NAAT NEGATIVE 09/07/21 09/07/21 09/07/21 12:18 12:18 12:25 WBC RBC Hgb Hct MCV MCH MCHC RDW Std Deviation RDW Coeff of Aries Plt Count MPV Immature Gran % (Auto) Neut % (Auto) Lymph % (Auto) Stephens % (Auto) Eos % (Auto) Baso % (Auto) Neut # (Auto) Lymph # (Auto) Stephens # (Auto) Eos # (Auto) Baso # (Auto) Immature Gran # (Auto) Sodium Potassium Chloride Carbon Dioxide Anion Gap BUN Creatinine Est Cr Clr Drug Dosing Est GFR ( Amer) Est GFR (Non-Af Amer) BUN/Creatinine Ratio Glucose Fasting Glucose Calcium Total Bilirubin AST ALT Alkaline Phosphatase Total Protein Albumin Globulin Albumin/Globulin Ratio Triglycerides Cholesterol LDL Cholesterol, Calc VLDL Cholesterol, Calc HDL Cholesterol Cholesterol/HDL Ratio TSH Urine Color Yellow Urine Appearance Clear Urine pH 6.0 Ur Specific Eminence 1.018 Urine Protein Negative Urine Glucose (UA) Negative Urine Ketones Negative Urine Blood Trace H Urine Nitrite Negative Urine Bilirubin Negative Urine Urobilinogen Negative Ur Leukocyte Esterase 2+ H Urine WBC (Auto) 5-10 H Urine RBC (Auto) 0-4 U Hyaline Cast (Auto) 1-5 U Epithel Cells (Auto) >30 H Urine Bacteria (Auto) Negative POC Ur Test NEG Salicylates Urine Opiates Screen Neg Ur Methadone, Qual Neg Acetaminophen Urine Barbiturates Neg Ur Phencyclidine (PCP) Neg U Amphetamin/Meth Scrn Neg MDMA (Ecstasy) Screen Neg U Benzodiazepines Scrn Neg [place] Ur Cocaine Metabolite Neg U Marijuana (THC) Screen Neg Ethyl Alcohol mg/dL SARS-CoV-2, RNA, NAAT 09/08/21 09/08/21 09:11 09:11 WBC RBC Hgb Hct MCV MCH MCHC RDW Std Deviation RDW Coeff of Aries Plt Count MPV Immature Gran % (Auto) Neut % (Auto) Lymph % (Auto) Stephens % (Auto) Eos % (Auto) Baso % (Auto) Neut # (Auto) Lymph # (Auto) Stephens # (Auto) Eos # (Auto) Baso # (Auto) Immature Gran # (Auto) Sodium Potassium Chloride Carbon Dioxide Anion Gap BUN Creatinine Est Cr Clr Drug Dosing Est GFR ( Amer) Est GFR (Non-Af Amer) BUN/Creatinine Ratio Glucose Fasting Glucose 166 H Calcium Total Bilirubin AST ALT Alkaline Phosphatase Total Protein Albumin Globulin Albumin/Globulin Ratio Triglycerides 220 H Cholesterol 149 LDL Cholesterol, Calc 56 VLDL Cholesterol, Calc 44 H HDL Cholesterol 49 Cholesterol/HDL Ratio 3.0 TSH Urine Color Urine Appearance Urine pH Ur Specific Eminence Urine Protein Urine Glucose (UA) Urine Ketones Urine Blood Urine Nitrite Urine Bilirubin Urine Urobilinogen Ur Leukocyte Esterase Urine WBC (Auto) Urine RBC (Auto) U Hyaline Cast (Auto) U Epithel Cells (Auto) Urine Bacteria (Auto) POC Ur Test Salicylates Urine Opiates Screen Ur Methadone, Qual Acetaminophen Urine Barbiturates Ur Phencyclidine (PCP) U Amphetamin/Meth Scrn MDMA (Ecstasy) Screen U Benzodiazepines Scrn [place] 0.8 Ur Cocaine Metabolite U Marijuana (THC) Screen Ethyl Alcohol mg/dL SARS-CoV-2, RNA, NAAT Hospital Course (1) Schizoaffective disorder: (2) Obstructive sleep apnea, adult: (3) Diabetes mellitus type II, controlled: 09/12/21: tolerating Latuda, EKG given polypharmacy, propranolol remains helpful 09/11/21: risks/benefits/alternatives reviewed re: Latuda 40 mg daily with evening meal. combo with Navane is necessary for residual symptoms and hx of extensive past medication trials. 09/10/21: propranolol 10 mg Bid with meals, Dr. Crawford would support a trial of atypical in combination with Navane with hopes to taper Navane over time. Discussed Latuda based on past trials and formulary. 09/09/21: risks/benefits/alternatives re-reviewed re: her current psychiatric medications, risk of TD, metabolic concerns, and also propranolol trial for tremor and akathisia. The patient agreed to propranolol 10 mg q8 prn with plan to titrate or make prn. 09/08/21: The patient was admitted to the [facility] ([facility]) on q15 min checks (behavioral with suicide precautions) for safety. The patient will participate in group, recreational, and milieu therapies and will be offered additional individual and family sessions as clinically appropriate. Risks/benefits/alternatives reviewed re: her current medication and she is willing to take as prescribed here. Blood glucose is elevated, will consider diet adjustment/gluc checks (patient wants to minimize changes at this time). She was diagnosed with sleep apnea but is not yet prescribed a CPAP mask, this may be a safety concern around discharge. Mental Health & Subst Abuse Tx Psychiatrist Name of Psychiatrist: [facility] - Dr. Crawford Psychiatrist's Psychiatric Appointment Comment: [facility] [address] [address] Therapist Name of Therapist: Dr. Teran Therapist's , Ext. [phone] Date of Therapist Appointment: 09/19/21 Time of Therapist Appointment: 3:00pm Therapy Appointment Comment: via zoom; Callie will send the link Post Discharge Appointments Primary Care Physician Name Of Family Doctor: [facility] [place] - Dr. Green Primary Care Date of Appointment with PCP: 09/18/21 Time of Appointment with PCP: 2:00 PM Provider Appointment Comment: [address] [place] [id number] Smoking Cessation Counseling Tobacco Cessation Medication Prescribed at Discharge: Not Applicable/Non-Smoker Other #1: Name of Aftercare Appointment: Arianne Piedra MS, [facility] Phone Number of Aftercare Appointment: [phone] ext. [phone] Aftercare Appointment Comment: [address] [place] [id number] Discharge Plan Discharge Items Patient Disposition: Home - Self-Care Reason For Visit: PSYCHOSIS NOS Discharge Diagnosis: schizoaffective disorder Activity: Resume your previous activity Non-emergency contact: Primary Care Provider, Psychiatrist and Therapist Call non-emergency contact if: you have any medication questions and your symptoms worsen Follow-up/Referrals: Ezra Green MD [Primary Care Provider] - Diet: Regular Addtl Attending Provider Instructions: SPECIAL CARE INSTRUCTIONS: 1. Follow through with your scheduled aftercare appointments. If unable to keep an appointment, please call to reschedule. 2. Take your medication only as prescribed. Medication should not be changed or stopped without the approval of your doctor. In the event of worsening symptoms or concerns about side effects, contact your doctor immediately. 3. Utilize new healthy coping skills, anger management skills, and stress management skills learned during your hospitalization. Journal feelings and process them with a support person. Identify stressors or situations that may result in relapse, deterioration or inappropriate behaviors and develop a plan to deal with those issues. 4. If your coping skills are ineffective and you are in crisis, contact your outpatient providers for direction. If unable to reach your providers, please call the [facility] CRISIS LINE AT , go to the [facility] walk-in center at [address], [address], [place], or go to the closest Emergency Room. 5. Avoid alcohol and un-prescribed drugs. 6. You have been provided with the Mental Health Advance Directives Pamphlet for your review. 7. Your condition is stable for discharge to outpatient level of care, but recovery is an ongoing process. Ifthoughts to harm yourself or others return, follow the safety plan developed during your stay. Planning for a safe return home includes securing weapons. Our treatment team recommends weaponsbe removed from the home until your outpatient provider reassesses your progress. In rare cases where the items themselvescannot be removed, guns and ammunitionshould be secured separatelyand keys stored by a reliable personoutside of the home. If you were admitted on an involuntary commitment, the police or other legal authorities may be involved in this process. AFTERCARE APPOINTMENTS: * Please call your insurance company prior to your scheduled appointment to confirm your aftercare providers are covered. Take your insurance information to your appointments. WHO TO CALL AND WHEN: Medical Emergencies: For questions or emergencies related to your hospital stay, please contact the Inpatient Behavioral Health Unit at [phone]. A psychiatric tech is on-call 21/10 for the Behavioral Health Unit for emergencies At any time you feel your situation is an emergency, you may also call 911 immediately. Pending Studies at Discharge: No Stand-Alone Forms: My [employer], Smoking Cessation Medications and DC Order Prescriptions: New Latuda 40 mg tablet See Rx Instructions .ROUTE .COMPLEX Qty: 30 RF: 0 propranolol 10 mg Tablet 10 mg PO BIDM 30 Days Qty: 60 RF: 0 hydroxyzine HCl 25 mg Tablet 25 mg PO Q6 PRN (Reason: Anxiety) 14 Days Qty: 30 RF: 0 lorazepam 1 mg Tablet 1 mg PO Q8 PRN (Reason: Anxiety) 14 Days Qty: 10 RF: 0 Continued celecoxib 200 mg capsule 200 mg PO QAM Qty: 90 RF: 3 rosuvastatin 5 mg tablet 5 mg PO HS Qty: 90 RF: 3 metformin 500 mg tablet extended release 24 hr 500 mg PO BID Qty: 180 RF: 3 losartan 100 mg tablet 100 mg PO QAM Qty: 90 RF: 3 omega-3 fatty acids [Fish Oil Concentrate] 1,000 mg capsule 1,000 mg PO BID RF: 0 mirtazapine 45 mg tablet 45 mg PO HS RF: 0 aspirin 81 mg tablet,delayed release (DR/EC) 81 mg PO QPM RF: 0 cholecalciferol (vitamin D3) 25 mcg (1,000 unit) capsule 3,000 unit PO QAM RF: 0 lamotrigine 100 mg tablet 100 mg PO UD RF: 0 thiothixene 10 mg capsule 35 mg PO DAILY RF: 0 lithium carbonate 300 mg tablet extended release 600 mg PO HS RF: 0 levothyroxine 25 mcg tablet 25 mcg PO DAILY Qty: 90 RF: 3 (DME) blood-glucose meter [goCatchuch Verio Reflect Start] Kit See Rx Instructions .Route Qty: 1 RF: 0 amantadine HCl 100 mg capsule 100 mg PO BID RF: 0 venlafaxine 150 mg capsule,extended release 24hr 300 mg PO PM RF: 0 Discharge Orders: Discharge Order (Routine); Ordered 09/13/21 Ordered By: Jaqueline Castaneda Admission Data Admit Date/Time: 09/07/21 14:55 Attending Provider: Jaqueline Castaneda Admit Provider: Lorrie Hammonds Primary Care Provider: Ezra Green Other Interventions: PSY Interdisciplinary Discharge Planning Last Done: 09/12/21 17:09 Coding Level of Care Code 98372 D/C day mgmt > 30 min Diagnoses Schizoaffective disorder F25.9 Schizoaffective disorder type: unspecified Obstructive sleep apnea, adult G47.33 Diabetes mellitus type II, controlled E11.9
== END 2021-09-13 16:55 | disposition home or self-care (01) | DRG 885 ==
LOC: ED 11:03 → 3S 14:55